=== PATIENT | male | born 1960 | race Caucasian/White ===

== ENCOUNTER 2017-06-20 01:43 | Observation (INO) | payer BC, SELFPAY | END 2017-06-20 11:30 | disposition home or self-care (01) | PROVIDERS: Admitting Provider Emergency Medicine; Emergency Provider Emergency Medicine; Visit Provider Family Medicine | DX: R07.9 Chest pain, unspecified (principal); Z95.5 Presence of coronary angioplasty implant and graft; I10 Essential (primary) hypertension | CPT/HCPCS: 36415; 71010; 80053; 82550; 82553; 84484; 85025; 93005; 99285; G0378 ==

== ENCOUNTER → 2017-09-22 15:26 | Outpatient (CLI) | payer BC, SELFPAY ==
[2017-09-22 16:43] VITALS: BMI 39.4
== END ==
PROVIDERS: Family Provider Family Medicine; PCP Family Medicine; Visit Provider Nurse Practitioner Family
DX: E66.9 Obesity, unspecified (principal); R60.0 Localized edema; G47.33 Obstructive sleep apnea (adult) (pediatric); Z71.3 Dietary counseling and surveillance
CPT/HCPCS: 97802; G0108

== ENCOUNTER → 2017-09-29 20:48 | Outpatient (CLI) | payer BC, SELFPAY | PROVIDERS: PCP Family Medicine; Visit Provider Nurse Practitioner Family | DX: G47.33 Obstructive sleep apnea (adult) (pediatric) (principal); E66.9 Obesity, unspecified; R60.0 Localized edema | CPT/HCPCS: 95811 ==

== ENCOUNTER → 2018-01-28 08:58 | Outpatient (CLI) | payer BC, SELFPAY ==
[2018-01-28 10:01] LABS: Erythrocyte Sedimentation Rate 14 mm/hr (0-20)
[2018-01-30 12:14] LABS: Anti-Centromere B Antibodies <0.2 AI (0.0-0.9); Anti-Jo-1 <0.2 AI (0.0-0.9); Anti-Smith Antibody <0.2 AI (0.0-0.9); Antichromatin Antibodies <0.2 AI (0.0-0.9); Antiscleroderma-70 Antibodies <0.2 AI (0.0-0.9); RNP Antibodies 0.5 AI (0.0-0.9); Sjogren's Anti-SS-A <0.2 AI (0.0-0.9); Sjogren's Anti-SS-B <0.2 AI (0.0-0.9)
[2018-02-01 16:54] LABS: Anti-DNA (DS) Ab Qn <1 IU/mL (0-9)
== END ==
PROVIDERS: Visit Provider Nurse Practitioner Family
DX: R60.0 Localized edema (principal); L53.9 Erythematous condition, unspecified; M79.606 Pain in leg, unspecified; G47.33 Obstructive sleep apnea (adult) (pediatric)
CPT/HCPCS: 36415; 85651; 86225; 86235

== ENCOUNTER 2018-08-01 17:30 | Outpatient (RCR) | payer BC, SELFPAY ==
--- NOTE | 2018-07-05 18:17 | HMH.PTOPEV ---
PT Outpatient Evaluation Rehab PT Outpatient Evaluation Start: 07/05/18 17:51 Freq: Status: Active Protocol: Document 07/05/18 17:54 [id number] (Rec: 07/05/18 18:17 AMY [id number]) Electronically Signed By Gage Zamora PT 07/05/18 17:54 Outpatient Therapy Subjective History Subjective History This is the initial Physical Therapy evaluation for Jerel Pereira. Pt is a 58 y/o male referred to PT for c/o RLE plantar fascitis and alley's pain. Pt reprots he has dealt with PF for ~ 3 years intermittantly. Pt reprots that his L foot was worse but after several injections the pain eased off. PT now reports his R heel is bothering him. Pt reports he has had a few injections in this foot as well. Chief Complaint Pain Stiff Symptom Type Ache Throb Sharp Burning Symptoms Relieved By Rest/Positioning Ice Symptoms Aggravated By Standing Prior Functional Limitations None Current Functional Limitations Driving Standing Recreation Activity Symptom Description Constant but Variable Level of pain today (0-10) 2 Pain scale - at its best (0-10) 1 Pain scale - at its worst (0-10) 5 Ankle/Foot Eval Gait Observation General Gait Pattern Observation No Deviations/Normal Assistive Device Ambulation Assistive Device None Palpation Tenderness right Ankle/Foot Palpation Findings Tenderness Ankle/Foot Palpation Overall Comment TTP PF and Achilles insertion ROM Ankle/Foot Dorsiflexion w/Knee Extended 5 Active Range Motion (degrees) Ankle/Foot Plantar Flexion Active Range 60 of Motion (degrees) Ankle/Foot Eversion Active Range of 20 Motion (degrees) Ankle/Foot Inversion Active Range of 30 Motion (degrees) Ankle/Foot ROM Limitations Soft Tissue Tightness Special Tests Ankle Eversion Test Negative Right Talar Tilt Test Negative Right Ankle Inversion (supination) Test Negative Right Foot Compression Test Negative Right Foot Feiss Line Negative Right Foot Interdigital Neuroma Test Negative Right Outpatient Therapy Assessment Impairments Problems/Impairmments
== END 2018-08-01 17:35 | disposition home or self-care (01) ==
LOC: PT 17:30
PROVIDERS: Visit Provider Podiatrist
DX: M76.61 Achilles tendinitis, right leg (principal); M72.2 Plantar fascial fibromatosis; M67.01 Short Achilles tendon (acquired), right ankle
CPT/HCPCS: 97010; 97035; 97110; 97163

== ENCOUNTER → 2018-09-28 13:25 | Outpatient (CLI) | payer BC, SELFPAY ==
--- NOTE | 2018-09-28 13:30 | XR_ITS ---
XR shoulder RT min 2V HISTORY: ITS.REASON: right shoulder pain ORDERING PHYSICIAN: Miguel Christianson MD PATIENT AGE: 58 years Comparison: None FINDINGS: No fracture or dislocation. No lytic or blastic change. There is normal mineralization. The joint spaces are well-preserved. No significant degenerative/arthritic changes. No erosive changes evident. IMPRESSION: Negative, no acute finding
--- NOTE | 2018-09-28 13:30 | XR_ITS ---
XR hand RT min 3V HISTORY: ITS.REASON: right hand pain/ numbness ORDERING PHYSICIAN: Miguel Christianson MD PATIENT AGE: 58 years COMPARISON: None FINDINGS: No fracture or dislocation. No lytic or blastic change. There is normal mineralization.. The joint spaces are well-preserved. No significant degenerative/arthritic changes. No erosive changes evident.. IMPRESSION: Negative, no acute finding
== END ==
PROVIDERS: PCP Family Medicine; Visit Provider Orthopaedic Surgery
DX: M79.641 Pain in right hand (principal); M25.511 Pain in right shoulder
CPT/HCPCS: 73030; 73130

== ENCOUNTER → 2018-12-04 15:42 | Outpatient (CLI) | payer BC, SELFPAY ==
[2018-12-04 16:18] LABS: Basophils # 0.1 K/mm3 (0-0.2); Basophils % 0.7 % (0.1-2.0); Eosinophils # 0.3 K/mm3 (0.0-0.4); Eosinophils % 4.1 % (0.1-12.0); Hematocrit 43.9 % (42.0-52.0); Hemoglobin 15.2 g/dL (14.1-18.0); Lymphocytes # 2.6 K/mm3 (0.7-4.5); Lymphocytes % 33.5 % (10-50); Mean Corpuscular HGB Conc 34.6 g/dL (31.8-35.4); Mean Corpuscular Hemoglobin 30.8 pg (27.0-31.2); Mean Platelet Volume 6.5 fl (7.4-10.4); Monocytes # 0.5 K/mm3 (0.1-1.0); Neutrophils # 4.3 K/mm3 (1.8-7.8); Neutrophils % 55.7 % (37.0-80.0); Platelet Count 401 K/mm3 (142-424); Red Blood Count 4.94 M/mm3 (4.60-6.20); Red Cell Distribution Width 12.9 % (11.5-17.5); White Blood Count 7.6 K/mm3 (4.8-10.8)
[2018-12-04 17:48] LABS: Anion Gap 15.3 mEq/L (5-15); Blood Urea Nitrogen 14 mg/dL (7-18); Calcium 9.4 mg/dL (8.5-10.1); Carbon Dioxide 28 mmol/L (21.0-32.0); Chloride 104 mmol/L (98-107); Creatinine,Serum 0.95 mg/dL (0.70-1.30); Estimated Glomerular Filt Rate 81 ml/min (>60); GFR (African American) 98 ML/MIN (>60); Glucose 94 mg/dL (74-106); Potassium 4.3 mmoL/L (3.5-5.1); Sodium 143 mmol/L (136-145)
== END ==
PROVIDERS: Visit Provider Orthopaedic Surgery
DX: M65.341 Trigger finger, right ring finger (principal); G56.01 Carpal tunnel syndrome, right upper limb
CPT/HCPCS: 36415; 80048; 85025; 93005

== ENCOUNTER 2018-12-12 09:46 | Day surgery (SDC) | payer BC, SELFPAY ==
[2018-12-11 12:55] VITALS: BP 121/72; PULSE 54; RESP 16; TEMP 36.3; O2SAT 100
[2018-12-11 14:53] VITALS: BMI 37.6
[2018-12-12 10:31] VITALS: BP 135/70; PULSE 61; RESP 18; TEMP 36.7; O2SAT 97
[2018-12-12 12:40] VITALS: BP 120/76; PULSE 60; RESP 16; TEMP 36.2; O2SAT 97
[2018-12-12 13:10] VITALS: BP 137/87; PULSE 57; RESP 16; TEMP 36.4; O2SAT 98
--- NOTE | 2018-12-12 13:25 | HMH.OPNOTE ---
Date of procedure: 12/12/18 Pre-op Diagnosis:: Trigger finger, right fourth digit Post-op Diagnosis:: Same Procedure performed:: Trigger finger (A1 paddy) release, right fourth digit Surgeon:: Miguel Christianson MD ROTARY DRILLER PROSPECTING:: Michael Wu Anesthesia: regional ([place]'s block) Estimated blood loss (mL): 0 Clinical Note:: Patient is a 58-year-old gentleman with recurrent triggering of his right ring finger. He had symptoms for a long time which failed to respond satisfactorily to conservative management including local steroid injection. As the patient failed to respond adequately to conservative management and reports significant pain, disability and dysfunction with his right hand surgical release of the A1 pulleys was necessary to relieve symptoms, improve function and decrease the pain and to prevent permanent stiffness and damage. 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 He has remote history of myocardial infarction and is on long-term aspirin and Plavix. Please refer to my office note for full details. Operative findings:: The intraoperative findings showed very thickened and inflamed A1 paddy of the ring finger. Also there was synovitis of the flexor tendon sheath. The flexor tendons are thickened and somewhat degenerate but there is no complete tear. There was no evidence of any space-occupying lesions over the tendons or within the A1 paddy. Operative note:: On the day of the surgery the patient was met in the preoperative area. Patient was positively identified and the operative site was marked and initialed by me. A physical examination was performed and the chart was updated. I again discussed the procedure, risks and benefits and alternatives with the patient. The complications discussed include but are not limited to- infection, injury to nerves, tendons and blood vessels, incisional scar (cosmesis), scar tenderness/contracture, DVT/PE, finger stiffness, bowstringing of the tendons, CRPS (complex regional pain syndrome- pain, sensory and temperature changes, swelling and stiffness), painful scar, incomplete relief of pain, incomplete return of function, recurrence and likely need for further surgery in future and also the risks of anesthesia including heart attack, stroke, and even . I have discussed how there is a small but real possibility of loss of use of the arm, loss of the limb or loss of life itself. I have also explained how additional surgery may be required if there are any complications or recurrence. We have also discussed the postoperative recovery and rehabilitation required, the likely need for hand therapy, the possibility of stiffness, chronic pain and we've also discussed the option of nonsurgical treatment. We have also discussed the anesthetic options which include local, regional and general. Patient expressed a preference for a regional [place]'s block. Patient asked appropriate questions and all have been answered by me. Patient wished to proceed with the surgery. Consent form was reviewed and signed. Patient understood the risks, agreed to proceed with surgery, [signed the consent form] and no guarantees or assurances were given or implied. The patient was brought to the operating room and placed supine on the operating table. The right upper extremity was placed over a side table. All the bony prominences were well-padded. A well-padded double cuff tourniquet was placed over the right upper arm and the limb was exsanguinated with the Esmarch bandage and tourniquet cuff was inflated to 250 mmHg. A Isabela?s block was administered by the milk and cream grader. Please see nursing records for the total tourniquet time. The right upper extremity was prepped and draped in the usual sterile fashion. A preprocedure timeout was performed as per hospital policy. A transverse skin incision was marked just distal to the distal palmar crease. Next, a transverse incision approximately 1.5 cm in length was made just distal to th
--- NOTE | 2018-12-12 14:16 | P.OP_ITS ---
Date of procedure: 12/12/18 Pre-op Diagnosis:: Trigger finger, right fourth digit Post-op Diagnosis:: Same Procedure performed:: Trigger finger (A1 paddy) release, right fourth digit Surgeon:: Miguel Christianson MD POKER MANAGER:: Michael Wu Anesthesia: regional ([place]'s block) Estimated blood loss (mL): 0 Clinical Note:: Patient is a 58-year-old gentleman with recurrent triggering of his right ring finger. He had symptoms for a long time which failed to respond satisfactorily to conservative management including local steroid injection. As the patient failed to respond adequately to conservative management and reports significant pain, disability and dysfunction with his right hand surgical release of the A1 pulleys was necessary to relieve symptoms, improve function and decrease the pain and to prevent permanent stiffness and damage. 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 He has remote history of myocardial infarction and is on long-term aspirin and Plavix. Please refer to my office note for full details. Operative findings:: The intraoperative findings showed very thickened and inflamed A1 paddy of the ring finger. Also there was synovitis of the flexor tendon sheath. The flexor tendons are thickened and somewhat degenerate but there is no complete tear. There was no evidence of any space-occupying lesions over the tendons or within the A1 paddy. Operative note:: On the day of the surgery the patient was met in the preoperative area. Patient was positively identified and the operative site was marked and initialed by me. A physical examination was performed and the chart was updated. I again discussed the procedure, risks and benefits and alternatives with the patient. The complications discussed include but are not limited to- infection, injury to nerves, tendons and blood vessels, incisional scar (cosmesis), scar tenderness/contracture, DVT/PE, finger stiffness, bowstringing of the tendons, CRPS (complex regional pain syndrome- pain, sensory and temperature changes, swelling and stiffness), painful scar, incomplete relief of pain, incomplete return of function, recurrence and likely need for further surgery in future and also the risks of anesthesia including heart attack, stroke, and even . I have discussed how there is a small but real possibility of loss of use of the arm, loss of the limb or loss of life itself. I have also explained how additional surgery may be required if there are any complications or recurrence. We have also discussed the postoperative recovery and rehabilitation required, the likely need for hand therapy, the possibility of stiffness, chronic pain and we've also discussed the option of nonsurgical treatment. We have also discussed the anesthetic options which include local, regional and general. Patient expressed a preference for a regional [place]'s block. Patient asked appropriate questions and all have been answered by me. Patient wished to proceed with the surgery. Consent form was reviewed and signed. Patient understood the risks, agreed to proceed with surgery, [signed the consent form] and no guarantees or assurances were given or implied. The patient was brought to the operating room and placed supine on the operating table. The right upper extremity was placed over a side table. All the bony prominences were well-padded. A well-padded double cuff tourniquet was placed over the right upper arm and the limb was exsanguinated with the Esmarch bandage and tourniquet cuff was inflated to 250 mmHg. A Isabela?s block was administered by the storage center manager. Please see nursing records for the total tourniquet time. The right upper extremity was prepped and draped in the usual sterile fashion. A preprocedure
== END 2018-12-12 13:10 | disposition home or self-care (01) ==
PROVIDERS: PCP Family Medicine; Visit Provider Orthopaedic Surgery
PROC: (CPT 26055; principal; 2018-12-12 11:15)
DX: M65.341 Trigger finger, right ring finger (principal)
CPT/HCPCS: 26055; 96374

== ENCOUNTER → 2019-03-22 15:50 | Outpatient (CLI) | payer BC, SELFPAY ==
--- NOTE | 2019-03-22 15:55 | MR_ITS ---
PROCEDURE: MR KNEE LT WO CON CLINICAL INDICATION: evaluate for meniscal tear Twisting injury with pain medially. COMPARISON: XR KNEE LT 3V from 03/07/2019 TECHNIQUE: Routine multiplanar multi echo sequences are performed without gadolinium enhancement. FINDINGS: The cruciate ligaments, collateral ligaments, patellar tendon, and quadriceps tendon all appear intact. There is some mild thinning of the patellar cartilage. No meniscal tear is evident. There is a mild amount of bone marrow edema within the medial femoral condyle. There is a small amount of fluid within the knee joint. There is mild generalized edema of the subcutaneous tissues about the knee. Varicosities are present medially and laterally. IMPRESSION: 1. No evidence of internal derangement 2. Suspect a small area of bone bruise along the medial femoral condyle 3. Minimal osteoarthritic change of the patellofemoral joint with minimal thinning of the patellar cartilage Dictated by: Bjorn Turk MD 03/24/2019 11:40 Electronically signed by Bjorn Turk MD in [place] 03/24/2019 11:40
== END ==
PROVIDERS: PCP Family Medicine; Visit Provider Orthopaedic Surgery
DX: S83.412A Sprain of medial collateral ligament of left knee, initial encounter (principal); S89.92XA Unspecified injury of left lower leg, initial encounter
CPT/HCPCS: 73721

== ENCOUNTER 2019-06-28 16:39 | Outpatient (RCR) | payer BC, SELFPAY | END 2019-06-28 16:45 | disposition home or self-care (01) | LOC: PT 16:39 | PROVIDERS: PCP Family Medicine; Visit Provider Family Medicine | DX: S46.911A Strain of unspecified muscle, fascia and tendon at shoulder and upper arm level, right arm, initial encounter (principal) | CPT/HCPCS: 97163 ==

== ENCOUNTER 2019-08-31 17:30 | Outpatient (RCR) | payer BC, SELFPAY | END 2019-08-31 17:35 | disposition home or self-care (01) | LOC: PT 17:30 | PROVIDERS: PCP Family Medicine; Visit Provider Family Medicine | DX: S46.911A Strain of unspecified muscle, fascia and tendon at shoulder and upper arm level, right arm, initial encounter (principal) | CPT/HCPCS: 97010; 97014; 97110; 97163; G0283 ==

== ENCOUNTER 2019-11-04 13:21 | Emergency (ER) | payer BC, SELFPAY ==
[2019-11-04 13:27] VITALS: BP 110/68; PULSE 65; RESP 18; O2SAT 97; BMI 36.9
--- NOTE | 2019-11-04 13:45 | ECG_ITS ---
APPROVED REPORT Exam: Resting ECG HR:71 bpm ECG Measurements Heart Rate 71 AXES LA 142 P 43 QRSd 92 QRS -17 QT 410 T 32 QTc 445 <Conclusion> Normal sinus rhythm Normal ECG Electronically signed by : Ruddy Quinonez, 11/05/2019 20:59:14
--- NOTE | 2019-11-04 13:59 | CT_ITS ---
PROCEDURE: CT ANGIO CHEST CLINCIAL INDICATION: CP Chest pain, pain and pressure and center of the chest heart disease COMPARISON: No exams were available for comparison TECHNIQUE: IV Contrast: 70ML OPTIRAY 350 Axial images obtained with sagittal and coronal reformats. All CT scans at the facility use one or more dose reduction, viz: automated exposure control, ma/kV adjustment per patient size (including targeted exams where dose is matched to indication, i.e. head), or iterative reconstruction technique. FINDINGS: HEART AND MEDIASTINAL STRUCTURES: No evidence of pulmonary embolus, aortic aneurysm, or dissection. LUNGS AND PLEURAL SPACES: There are mild atelectatic or fibrotic changes in the lingula. The remaining lungs are clear. BONY STRUCTURES: No acute bony abnormalities apparent. UPPER ABDOMEN: There is mild splenomegaly at 14 cm. ADDITIONAL FINDINGS: Gynecomastia IMPRESSION: No acute finding. No evidence of pulmonary embolus Dictated by: Bjorn Turk MD 11/05/2019 10:15 Electronically signed by Bjorn Turk MD in [place] 11/05/2019 10:15
--- NOTE | 2019-11-04 14:11 | HMH.EDGENADL ---
ED Disposition Clinical Impression: Chest wall pain Disposition: Home, Self-Care Condition on Discharge: Good Instructions: DI for Acute Pain -- Adult Referrals: Ruddy Castillo MD [Primary Care Provider] - - Critical Care Critical Care Time: No Attestation: On 11/04/19, the high probability of a clinically significant, sudden or life threatening deterioration of the following system(s) required my full and direct attention, intervention and personal management. The time I documented below is in addition to time spent performing reported procedures but includes the following listed in this critical care notation. Medical Decision Making - Goran Inquiry Pt receiving controlled substance: No Vital Signs: 11/04/19 13:27 Pulse Rate [Radial] 65 Respiratory Rate 18 Blood Pressure [Right Arm] 110/68 Blood Pressure Mean [Right Arm] 82 Blood Pressure Source [Right Arm] Automatic Cuff Blood Pressure Position [Right Arm] Sitting 02 Sat by Pulse Oximetry 97 Oxygen Delivery Method Room Air - Lab Data Lab Results 11/04/19 13:43: WBC 6.3, RBC 4.98, Hgb 15.2, Hct 44.8, MCV 89.9, MCH 30.5, MCHC 33.9, RDW 13.3, Plt Count 383, MPV 7.5, Neut % (Auto) 48.9, Lymph % (Auto) 36.5, Morrison % (Auto) 7.4, Eos % (Auto) 6.1, Baso % (Auto) 1.2, Neut # (Auto) 3.1, Lymph # (Auto) 2.3, Morrison # (Auto) 0.5, Eos # (Auto) 0.4, Baso # (Auto) 0.1 11/04/19 13:43: Sodium 138, Potassium 3.8, Chloride 105, Carbon Dioxide 27, Anion Gap 9.8, BUN 13, Creatinine 0.70, Estimated Creat Clear 191, Estimated GFR 115, Est GFR ( Amer) 139, Glucose 91, Calcium 9.5, Troponin I < 0.01 Result diagrams: 11/04/19 13:43 11/04/19 13:43 Orders (Tests/Meds): ED MEDICATIONS Discontinued Medications Generic Name Dose Route Start Last Admin Trade Name Freq PRN Reason Stop Dose Admin Ioversol 70 ml 11/04/19 15:05 11/04/19 15:06 Rad-Optiray 350 100ml Vial IV 11/04/19 15:06 70 ml ONCE ONE Administration Protocol Sodium Chloride 50 ml 11/04/19 15:05 11/04/19 15:07 Rad-Ns 50ml Vial IV 11/04/19 15:06 50 ml ONCE ONE Administration Sodium Chloride 10 ml 11/04/19 15:05 11/04/19 15:07 Rad-Saline Flush 10ml Syringe IV 11/04/19 15:06 10 ml ONCE ONE Administration ORDERS Category Date Time Status CTA Chest [CT angio chest] Stat Cat Scan 11/04/19 13:59 Taken Troponin I Q3H Lab 11/04/19 17:00 Ordered Troponin I Q3H Lab 11/04/19 20:00 Ordered Medical Decision Narrative: Second set of cardiac enzymes are within normal limits patient will follow up with his career development facilitator on Tuesday. General Adult HPI - General Chief complaint: PAIN Stated complaint: pain in middle of chest all the thru to his back Time Seen by Provider: 11/04/19 16:00 Mode of Arrival: Ambulatory Limitations: No Limitations Description of Symptoms (Recalled from ER Triage Doc. by RN): pain in the center of his chest that radiates to his back. Better with rest - History of Present Illness HPI narrative: 59-year-old male presents to the ED with chest pain. He stated his chest pain started about 2 weeks ago and has been coming on and off. He describes the pain substernal and radiating towards his back. Patient denies any shortness of breath or diaphoresis. He states exacerbating factors of this chest pain include increasing intrathoracic pressure such as coughing sneezing laughing or taking a deep breath. Patient also states doing pushing movements also causes chest pain as well. Patient says alleviating factors include rest. Presently as patient is laying down in a supine position he complains of 0 chest pain. He does state when his pain is at its crescendo he describes the pain as a sharp pressure-like sensation and rates it at 7 out of 10. Patient states that he does have hyperlipidemia, diabetes mellitus type 2 and hypertension but he has been well controlled. Patient has had a cardiac catheterization in the past with one stent. Patient
[2019-11-04 14:21] LABS: Basophils # 0.1 K/mm3 (0-0.2); Basophils % 1.2 % (0.1-2.0); Eosinophils # 0.4 K/mm3 (0.0-0.4); Eosinophils % 6.1 % (0.1-12.0); Hematocrit 44.8 % (42.0-52.0); Hemoglobin 15.2 g/dL (14.1-18.0); Lymphocytes # 2.3 K/mm3 (0.7-4.5); Lymphocytes % 36.5 % (10-50); Mean Corpuscular HGB Conc 33.9 g/dL (31.8-35.4); Mean Corpuscular Hemoglobin 30.5 pg (27.0-31.2); Mean Corpuscular Volume 89.9 fl (80-94); Mean Platelet Volume 7.5 fl (7.4-10.4); Monocytes # 0.5 K/mm3 (0.1-1.0); Monocytes % 7.4 % (1.7-9.3); Neutrophils # 3.1 K/mm3 (1.8-7.8); Neutrophils % 48.9 % (37.0-80.0); Platelet Count 383 K/mm3 (142-424); Red Blood Count 4.98 M/mm3 (4.60-6.20); Red Cell Distribution Width 13.3 % (11.5-17.5); White Blood Count 6.3 K/mm3 (4.8-10.8)
[2019-11-04 14:29] LABS: Chloride 105 mmol/L (98-107); Potassium 3.8 mmoL/L (3.5-5.1); Sodium 138 mmol/L (136-145)
[2019-11-04 14:32] LABS: Anion Gap 9.8 mEq/L (5-15); Blood Urea Nitrogen 13 mg/dl (9-20); Calcium 9.5 mg/dl (8.4-10.2); Carbon Dioxide 27 mmol/L (22.0-30.0); Creatinine Clearance Estimated 191 mL/min (50-200); Estimated Glomerular Filt Rate 115 ml/min (>60); GFR (African American) 139 ML/MIN (>60); Glucose 91 mg/dl (74-100)
[2019-11-04 14:54] LABS: Troponin I < 0.01 ng/ml (0.00-0.034)
[2019-11-04 17:27] LABS: Troponin I < 0.01 ng/ml (0.00-0.034)
[2019-11-04 17:50] VITALS: BP 120/85; PULSE 85; RESP 20; TEMP 36.8; O2SAT 98
== END 2019-11-04 17:51 | disposition home or self-care (01) ==
PROVIDERS: Emergency Provider Family Medicine; PCP Family Medicine
DX: R07.89 Other chest pain (principal); E78.5 Hyperlipidemia, unspecified; E11.9 Type 2 diabetes mellitus without complications; I10 Essential (primary) hypertension; Z95.5 Presence of coronary angioplasty implant and graft; Z94.9 Transplanted organ and tissue status, unspecified; I25.2 Old myocardial infarction
CPT/HCPCS: 71275; 80048; 84484; 85025; 93005; 99283; Q9967

== ENCOUNTER → 2019-12-05 14:17 | Outpatient (CLI) | payer BC, SELFPAY ==
--- NOTE | 2019-12-05 14:24 | XR_ITS ---
PROCEDURE: XR HAND RT MIN 3V CLINICAL INDICATION: right 5th digit trigger finger COMPARISON: [id number] XR hand RT min 3V from 09/28/2018 FINDINGS: No fracture or dislocation. No lytic or blastic change. There is normal mineralization. The joint spaces are well-preserved. No significant degenerative/arthritic changes. No erosive changes evident. Other findings:None. IMPRESSION: No acute findings. Dictated by: Bjorn Turk MD 12/05/2019 15:13 Electronically signed by Bjorn Turk MD in [place] 12/05/2019 15:13
== END ==
PROVIDERS: PCP Family Medicine; Visit Provider Orthopaedic Surgery
DX: M65.30 Trigger finger, unspecified finger (principal)
CPT/HCPCS: 73130

== ENCOUNTER → 2019-12-19 08:08 | Outpatient (CLI) | payer BC, SELFPAY ==
[2019-12-19 09:14] LABS: Basophils # 0.1 K/mm3 (0-0.2); Eosinophils # 0.4 K/mm3 (0.0-0.4); Eosinophils % 6.4 % (0.1-12.0); Hematocrit 43.8 % (42.0-52.0); Hemoglobin 14.7 g/dL (14.1-18.0); Lymphocytes # 1.9 K/mm3 (0.7-4.5); Lymphocytes % 32.5 % (10-50); Mean Corpuscular HGB Conc 33.7 g/dL (31.8-35.4); Mean Corpuscular Hemoglobin 31.4 pg (27.0-31.2); Mean Corpuscular Volume 93.1 fl (80-94); Mean Platelet Volume 7.2 fl (7.4-10.4); Monocytes # 0.4 K/mm3 (0.1-1.0); Monocytes % 6.6 % (1.7-9.3); Neutrophils # 3.1 K/mm3 (1.8-7.8); Neutrophils % 53.5 % (37.0-80.0); Platelet Count 359 K/mm3 (142-424); Red Cell Distribution Width 13.4 % (11.5-17.5); White Blood Count 5.9 K/mm3 (4.8-10.8)
[2019-12-19 10:15] LABS: Chloride 104 mmol/L (98-107)
[2019-12-19 10:16] LABS: Potassium 4.5 mmoL/L (3.5-5.1); Sodium 138 mmol/L (136-145)
[2019-12-19 10:18] LABS: Alanine Aminotransferase 25 U/L (12-78); Alkaline Phosphatase 101 U/L (38-126); Anion Gap 8.5 mEq/L (5-15); Aspartate Amino Transferase 25 U/L (17-59); Bilirubin,Total 0.6 mg/dl (0.2-1.3); Blood Urea Nitrogen 16 mg/dl (9-20); Carbon Dioxide 30 mmol/L (22.0-30.0); Cholesterol 110 mg/dl (140-200); Estimated Glomerular Filt Rate 99 ml/min (>60); GFR (African American) 119 ML/MIN (>60); Triglycerides 77 mg/dl (30-150); VLDL Cholesterol 15 mg/dL (0-40)
[2019-12-19 10:19] LABS: Albumin Level 3.6 g/dl (3.5-5.0); Albumin/Globulin Ratio 1.4 (1.1-1.8); Calcium 9.3 mg/dl (8.4-10.2); Chol/HDL Ratio 2.4 (1-3.5); Globulin 2.5 g/dL (1.3-3.2); Glucose 99 mg/dl (74-100); HDL Cholesterol 46 mg/dl (40-60); Total Protein,Serum 6.1 g/dl (6.3-8.2)
[2019-12-19 10:30] LABS: Direct LDL Cholesterol 58.41 mg/dL (100-129)
[2019-12-19 11:24] LABS: Coronavirus 19 IgG Antibody Negative (Negative); Coronavirus 19 IgM Antibody Negative (Negative)
== END ==
PROVIDERS: Physician Assistant Medical; Visit Provider Orthopaedic Surgery
DX: Z01.818 Encounter for other preprocedural examination (principal); M65.351 Trigger finger, right little finger; I25.10 Atherosclerotic heart disease of native coronary artery without angina pectoris; T46.4X1A Poisoning by angiotensin-converting-enzyme inhibitors, accidental (unintentional), initial encounter; T46.6X1A Poisoning by antihyperlipidemic and antiarteriosclerotic drugs, accidental (unintentional), initial encounter
CPT/HCPCS: 36415; 80053; 80061; 85025; 86328

== ENCOUNTER 2019-12-20 07:13 | Day surgery (SDC) | payer BC, SELFPAY ==
--- NOTE | 2019-12-18 09:22 | SUR.PREOP ---
12/18/2019 @ 7123--PHONE CALL MADE TO PATIENT. PATIENT UNDERSTANDS THAT LAB WORK AND COVID TESTING NEEDS TO BE COMPLETED @ 0800 ON 12/19/2019. PATIENT UNDERSTANDS IF LAB WORK AND COVID-19 TESTS ARE NOT COMPLETED BY 12PM ON THAT DATE, THE SURGERY SCHEDULED WILL BE CANCELLED AND RESCHEDULED FOR ANOTHER TIME.
[2019-12-18 11:17] VITALS: BMI 36.9
[2019-12-20] VITALS (11 sets, daily range): BP systolic 107–116; BP diastolic 62–72; PULSE 56–65; RESP 18; TEMP 36.3–36.5; O2SAT 93–100
--- NOTE | 2019-12-20 10:33 | HMH.ANESCL ---
[facility] Anesthesia Checklist - Patient Identification Patient Identification: Arm Band, Verbal (Name & ) - Structural Data Admitted From: Home Planned Operative Procedure/s: r tfr Consent for Planned Operative Procedure(s) Verified: Yes Verified Documents: History and Physical - NPO Status Verified Time NPO: 00:00 - Chart Verification Results Verified: CBC, BMP - Additional verifications Patient : No Anesthesia Reactions: No Hx Blood Transfusions: No Blood Transfusion Reaction: No Cephalosporin Allergy: No Previous Colonoscopy: No - Cardiovascular Assessment Heart Sounds: S1 & S2 Pulse Strength: Baseline Pulse Rhythm: Regular Peripheral Edema: No - Airway Assessment C-Spine Mobility Assessed: Yes TMJ Mobility Assessed: Yes Dentition: Good Dentition - Neurological Assessment Level of Consciousness: Awake, Alert, Appropriate Hx Seizures: No Numbness or tingling in extremities: No - Anesthesia Plan Anesthesia Risk discussed: Yes Anesthesia Plan: Verified ASA Class: III Anesthesia Type: General [facility] History I have reviewed the patient's past medical history: Yes Medical History: Reports:: Arrhythmia, Hyperlipidemia, Myocardial Infarction Denies:: Cancer, Diabetes Mellitus Type 1, Diabetes Mellitus Type 2, Internal Pacemaker, MRSA, Seizures *Have you ever received a pneumonia vaccine?: No *Have you received a flu vaccine this season?: Yes Other Medical History: Denies: Blood Transfusion Reaction Anesthesia experience/problems:: none Laterality Cases: Right: Other Other Surgeries: Yes: Cholecystectomy, Colonoscopy, Coronary Stent, Other. No: Pacemaker Amputation: No Fractures: Yes (hand) - *Social History Educational Level: Completed College Smoking Status: Never smoker Alcohol Intake: current Alcohol Intake Frequency:: holidays/special occasions only Substance Use Type: denies use *Occupational Status:: employed Housing: house Household Members: family *Travel in the last 8 weeks: None Family Hx:: Cancer, Hyperlipidemia, Hypertension
--- NOTE | 2019-12-20 10:34 | P.PN_ITS ---
[facility] Anesthesia Record Part I Intake, IV Amount: 400 Estimated blood loss (mL): 5 Urine output (mL): 0 Blood Products used (#): none Blood Pressure: 111/71 SaO2: 93 Pulse Rate: 60 Respiratory Rate: 18 Temperature: 97.3 F Patient is:: Drowsy, Nasal O2, Stable Stable to PACU at:: 10:30
--- NOTE | 2019-12-20 12:04 | HMH.ANESII ---
[facility] Anesthesia Record Part II Discharge Time: 11:00 Destination: Surgical Day Care (OP Surgery) PACU nurse assessment reviewed?: Yes Patient Condition:: Good Anesthesia Complications:: None Swallowing reflex intact?: Yes Cyanosis?: No Blood Pressure: 108/71 Pulse Rate: 60 Temperature: 97.7 F Mental Status: Alert & Oriented Pain level:: 2 Nausea and/or vomitting:: None Intake, IV Amount: 25
--- NOTE | 2019-12-20 15:17 | HMH.OPNOTE ---
Date of procedure: 12/20/19 Pre-op Diagnosis:: Trigger finger, right fifth digit Post-op Diagnosis:: Same Procedure performed:: Trigger finger (A1 paddy) release, right fifth digit Surgeon:: Miguel Christianson MD WATERPROOFING SUPERVISOR:: Ruddy Mariscal Anesthesia: LMA Estimated blood loss (mL): 2 Clinical Note:: Patient is a 59-year-old gentleman with recurrent triggering of his right fifth finger. He had symptoms for a long time which failed to respond satisfactorily to conservative management including local steroid injection. As the patient failed to respond adequately to conservative management and reports significant pain, disability and dysfunction with his right hand, surgical release of the A1 pulleys is necessary to relieve symptoms, improve function and decrease the pain and to prevent permanent stiffness and damage. 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 He has remote history of myocardial infarction and is on long-term aspirin and Plavix. Please refer to my office note for full details. Operative findings:: The intraoperative findings showed very thickened and inflamed A1 paddy of the little finger. Also there was synovitis of the flexor tendon sheath. The flexor tendons are thickened and somewhat degenerate but there is no full-thickness are complete tear. There is no evidence of any space-occupying lesions over the tendons or within the A1 paddy. Operative note:: On the day of the surgery the patient was met in the preoperative area. Patient was positively identified and the operative site was marked and initialed by me. A physical examination was performed and the chart was updated. I have again discussed the procedure, risks and benefits and alternatives with the patient. The complications discussed include but are not limited to- infection, injury to nerves, tendons and blood vessels, incisional scar (cosmesis), scar tenderness/contracture, DVT/PE, finger stiffness, bowstringing of the tendons, CRPS (complex regional pain syndrome- pain, sensory and temperature changes, swelling and stiffness), painful scar, incomplete relief of pain, incomplete return of function, recurrence and likely need for further surgery in future and also the risks of anesthesia including heart attack, stroke, and even . I have discussed how there is a small but real possibility of loss of use of the arm, loss of the limb or loss of life itself. I have also explained how additional surgery may be required if there are any complications or recurrence. We have also discussed the postoperative recovery and rehabilitation required, the likely need for hand therapy, the possibility of stiffness, chronic pain and we've also discussed the option of nonsurgical treatment. Patient asked appropriate questions and all have been answered by me. Patient wished to proceed with the surgery. Patient understood the risks, agreed to proceed with surgery and no guarantees or assurances were given or implied. The patient was brought to the operating room and placed supine on the operating table. The right upper extremity was placed over a side table. All the bony prominences were well-padded. A general anesthesia was administered by the sewing inspector. A well-padded tourniquet cuff was placed over the right upper arm. The right upper extremity was prepped and draped in the usual sterile fashion. A preprocedure timeout was performed as per hospital policy. A transverse skin incision was marked just distal to the distal palmar crease. The limb was exsanguinated with the Esmarch bandage and tourniquet cuff was inflated to 250 mmHg. Please see nursing records for the total tourniquet time. Next, a transverse incision approximately 1.5 cm in length was made just distal to the distal palmar crease for the little finger. Dissection was carried down through the subcutaneous fat down to the level of the flexor tendon sheath with care taken to identify and protect the neurova
== END 2019-12-20 11:50 | disposition home or self-care (01) ==
PROVIDERS: PCP Family Medicine; Visit Provider Orthopaedic Surgery
PROC: (CPT 26055; principal; 2019-12-20 08:45)
DX: M65.351 Trigger finger, right little finger (principal); I25.10 Atherosclerotic heart disease of native coronary artery without angina pectoris; I25.2 Old myocardial infarction; Z79.02 Long term (current) use of antithrombotics/antiplatelets; Z79.82 Long term (current) use of aspirin; Z88.0 Allergy status to penicillin
CPT/HCPCS: 26055; 96374

== ENCOUNTER → 2020-01-21 11:07 | Outpatient (CLI) | payer BC, SELFPAY ==
--- NOTE | 2020-01-21 11:14 | XR_ITS ---
PROCEDURE: XR ANKLE LT MIN 3V CLINICAL INDICATION: LT ANKLE PAIN Posttraumatic pain COMPARISON: No exams were available for comparison FINDINGS: No fracture or dislocation. No lytic or blastic change. There is normal mineralization. The joint spaces are well-preserved. No significant degenerative/arthritic changes. No erosive changes evident. Other findings:There is soft tissue swelling medially IMPRESSION: Soft tissue swelling otherwise negative Dictated by: Bjorn Turk MD 01/21/2020 11:39 Electronically signed by Bjorn Turk MD in [place] 01/21/2020 11:39
== END ==
PROVIDERS: PCP Family Medicine; Visit Provider Nurse Practitioner
DX: M25.572 Pain in left ankle and joints of left foot (principal)
CPT/HCPCS: 73610

== ENCOUNTER → 2020-04-23 17:12 | Outpatient (CLI) | payer BC, SELFPAY ==
[2020-04-23 18:12] LABS: Basophils # 0.1 K/mm3 (0-0.2); Basophils % 0.6 % (0.1-2.0); Eosinophils # 0.4 K/mm3 (0.0-0.4); Eosinophils % 5.1 % (0.1-12.0); Hematocrit 45.8 % (42.0-52.0); Hemoglobin 14.6 g/dL (14.1-18.0); Lymphocytes # 2.6 K/mm3 (0.7-4.5); Lymphocytes % 31.1 % (10-50); Mean Corpuscular HGB Conc 31.8 g/dL (31.8-35.4); Mean Corpuscular Hemoglobin 29.7 pg (27.0-31.2); Mean Corpuscular Volume 93.3 fl (80-94); Mean Platelet Volume 8.1 fl (7.4-10.4); Monocytes # 0.5 K/mm3 (0.1-1.0); Monocytes % 5.4 % (1.7-9.3); Neutrophils # 4.8 K/mm3 (1.8-7.8); Neutrophils % 57.7 % (37.0-80.0); Platelet Count 378 K/mm3 (142-424); Red Blood Count 4.91 M/mm3 (4.60-6.20); White Blood Count 8.3 K/mm3 (4.8-10.8)
[2020-04-23 18:41] LABS: Alanine Aminotransferase 28 U/L (12-78); Albumin Level 4.1 g/dl (3.5-5.0); Albumin/Globulin Ratio 1.6 (1.1-1.8); Alkaline Phosphatase 121 U/L (38-126); Anion Gap 11.1 mEq/L (5-15); Aspartate Amino Transferase 29 U/L (17-59); Bilirubin,Total 0.5 mg/dl (0.2-1.3); Blood Urea Nitrogen 17 mg/dl (9-20); Calcium 9.4 mg/dl (8.4-10.2); Carbon Dioxide 29 mmol/L (22.0-30.0); Chloride 103 mmol/L (98-107); Estimated Glomerular Filt Rate 86 ml/min (>60); GFR (African American) 104 ML/MIN (>60); Globulin 2.6 g/dL (1.3-3.2); Glucose 123 mg/dl (74-100); Potassium 4.1 mmoL/L (3.5-5.1); Sodium 139 mmol/L (136-145); Total Protein,Serum 6.7 g/dl (6.3-8.2)
[2020-04-23 19:04] LABS: Coronavirus 19 IgG Antibody Negative (Negative); Coronavirus 19 IgM Antibody Negative (Negative)
== END ==
PROVIDERS: Visit Provider Orthopaedic Surgery
DX: Z01.818 Encounter for other preprocedural examination (principal); M65.331 Trigger finger, right middle finger
CPT/HCPCS: 36415; 80053; 85025; 86328

== ENCOUNTER 2020-04-24 07:33 | Day surgery (SDC) | payer BC, SELFPAY ==
[2020-04-22 10:35] VITALS: BMI 37.6
[2020-04-24 07:57] VITALS: BP 128/71; PULSE 68; RESP 18; TEMP 36.3; O2SAT 96
--- NOTE | 2020-04-24 08:19 | P.PN_ITS ---
[facility] Anesthesia Checklist - Patient Identification Patient Identification: Arm Band, Verbal (Name & ) - Structural Data Admitted From: Home Planned Operative Procedure/s: Right third digit trigger finger release Consent for Planned Operative Procedure(s) Verified: Yes Verified Documents: Surgical Consent, History and Physical - NPO Status Verified Time NPO: 20:00 - Chart Verification Results Verified: CBC, BMP, ECG - Additional verifications Anesthesia Reactions: No Hx Blood Transfusions: No Blood Transfusion Reaction: No - Airway Assessment C-Spine Mobility Assessed: Yes TMJ Mobility Assessed: Yes Dentition: Good Dentition - Neurological Assessment Level of Consciousness: Awake, Alert, Appropriate, Follows Commands Hx Seizures: No Numbness or tingling in extremities: No - Anesthesia Plan Anesthesia Risk discussed: Yes Anesthesia Plan: Verified ASA Class: III Anesthesia Type: MAC [facility] History I have reviewed the patient's past medical history: Yes Medical History: Reports:: Arrhythmia, Congestive Heart Failure, Coronary Artery Disease, Hyperlipidemia, Hypertension, Myocardial Infarction Denies:: Cancer, Diabetes Mellitus Type 1, Diabetes Mellitus Type 2, Internal Pacemaker, MRSA, Seizures *Have you ever received a pneumonia vaccine?: No *Have you received a flu vaccine this season?: Yes Other Medical History: Denies: Blood Transfusion Reaction Comment:: DARWIN, obesity Anesthesia experience/problems:: No prior complications Laterality Cases: Right: Other Other Surgeries: Yes: Cholecystectomy, Colonoscopy, Coronary Stent, Other. No: Pacemaker Amputation: No Fractures: Yes (hand) - *Social History Smoking Status: Never smoker Alcohol Intake: current Alcohol Intake Frequency:: holidays/special occasions only Substance Use Type: denies use *Occupational Status:: employed Housing: house Household Members: family *Travel in the last 8 weeks: None Family Hx:: Cancer, Hyperlipidemia, Hypertension
[2020-04-24 10:15] VITALS: BP 117/68; PULSE 66; RESP 18; TEMP 36.4; O2SAT 95
[2020-04-24 10:30] VITALS: BP 125/68; PULSE 58; RESP 18; TEMP 36.4; O2SAT 97
--- NOTE | 2020-04-24 10:44 | HMH.OPNOTE ---
Date of procedure: 04/24/20 Pre-op Diagnosis:: Trigger finger, right middle finger Post-op Diagnosis:: Same Procedure performed:: Trigger finger release, right middle finger Surgeon:: Miguel Christianson MD PHOTOCOPY OPERATOR:: Nathan Ford Anesthesia: local, other (IV sedation) Estimated blood loss (mL): 1 Clinical Note:: Patient is a 60-year-old gentleman with triggering of his right middle middle finger. He had symptoms for a length of time which failed to respond satisfactorily to conservative management. As the patient failed to respond adequately to conservative management and reports significant pain, disability and dysfunction with his right hand surgical release of the A1 pulleys was necessary to relieve symptoms, improve function and decrease the pain and to prevent permanent stiffness and damage. Operative findings:: The intraoperative findings showed very thickened and inflamed A1 pulleys of the middle finger. Also there was synovitis of the flexor tendon sheath. The flexors tendons are thickened and somewhat degenerate but there is no tear. There is no evidence of any space-occupying lesions over the tendons or within the A1 paddy. Operative note:: On the day of the surgery the patient was met in the preoperative area. Patient was positively identified and the operative site was marked and initialed by me. A physical examination was performed and the chart was updated. I again discussed the procedure, risks and benefits and alternatives with the patient. The complications discussed include but are not limited to- infection, injury to nerves, tendons and blood vessels, incisional scar (cosmesis), scar tenderness/contracture, DVT/PE, finger stiffness, bowstringing of the tendons, CRPS (complex regional pain syndrome- pain, sensory and temperature changes, swelling and stiffness), painful scar, incomplete relief of pain, incomplete return of function, recurrence and likely need for further surgery in future and also the risks of anesthesia including heart attack, stroke, and even . I have discussed how there is a small but real possibility of loss of use of the arm, loss of the limb or loss of life itself. I have also explained how additional surgery may be required if there are any complications or recurrence. We have also discussed the postoperative recovery and rehabilitation required, the likely need for hand therapy, the possibility of stiffness, chronic pain and we've also discussed the option of nonsurgical treatment. Patient asked appropriate questions and all have been answered by me. Patient wished to proceed with the surgery. Patient understood the risks, agreed to proceed with surgery, and no guarantees or assurances were given or implied. The patient was brought to the operating room and placed supine on the operating table. The right upper extremity was placed over a side table. All the bony prominences were well-padded. A well-padded double cuff tourniquet was placed over the right upper arm. The right upper extremity was prepped and draped in the usual sterile fashion. A preprocedure timeout was performed as per hospital policy. The skin incision is marked for right middle finger trigger release at the proximal extent of the A1 paddy. Patient was given IV sedation and local anesthesia administered with 8 cc of 0.5% Marcaine without epinephrine. The limb was exsanguinated with the Esmarch bandage and tourniquet was inflated to 250 mmHg. Please see nursing records for total tourniquet time. Next, a transverse incision approximately 1.5 cm in length was made just proximal to level of the A1 paddy for the middle finger. Dissection was carried through the subcutaneous fat down to the level of the flexor tendon sheath with care taken to identify and protect the neurovascular bundles. The sheath was opened under direct vision with a scalpel, and then a scissor was used to release it under direct vision from the proximal extent of the A1 paddy to just
[2020-04-24 10:45] VITALS: BP 120/71; PULSE 61; RESP 18; TEMP 36.1; O2SAT 97
== END 2020-04-24 10:45 | disposition home or self-care (01) ==
LOC: OR 07:34
PROVIDERS: PCP Family Medicine; Visit Provider Orthopaedic Surgery
PROC: (CPT 26055; principal; 2020-04-24 09:00)
DX: M65.331 Trigger finger, right middle finger (principal)
CPT/HCPCS: 26055; 96374

== ENCOUNTER 2020-04-26 19:33 | Emergency (ER) | payer BC, SELFPAY ==
[2020-04-26 19:44] VITALS: BP 134/69; PULSE 78; RESP 20; O2SAT 98; BMI 37.6
--- NOTE | 2020-04-26 20:02 | HMH.EDUTC ---
[facility] [place] Disposition Clinical Impression: Allergic reaction Qualifiers: Encounter type: initial encounter Qualified Code(s): T78.40XA - Allergy, unspecified, initial encounter Disposition: Home, Self-Care Condition on Discharge: Good Instructions: DI for General Allergic Reactions Additional Instructions: Avoid contact with the offending substance if you can identify it. Don't start the oral steroids until tomorrow. Follow up with your regular doctor. GO TO THE ER FOR ANY WORSENING SYMPTOMS OR CONCERNS Prescriptions: methylPREDNISolone [Medrol] 4 mg PO DIRECTED 6 Days #21 tab.ds.pk Transmission Status: Pending to [id number] Referrals: Ruddy Castillo MD [Primary Care Provider] - Time of Disposition: 20:06 Medical Decision Making - Medical Records Medical records reviewed: No: I reviewed the patient's medical records. - Goran Inquiry Pt receiving controlled substance: No Vital Signs: 04/26/20 19:44 Pulse Rate [Right Brachial] 78 Respiratory Rate 20 Blood Pressure [Right Arm] 134/69 Blood Pressure Mean [Right Arm] 90 Blood Pressure Source [Right Arm] Automatic Cuff Blood Pressure Position [Right Arm] Sitting 02 Sat by Pulse Oximetry 98 Oxygen Delivery Method Room Air [facility] [place] HPI - General Stated complaint: Hives Time Seen by Provider: 04/26/20 20:02 Mode of Arrival: Ambulatory Source of Information: Patient Limitations: No Limitations Description of Symptoms (Recalled from Triage Doc. by RN): PATIENT C/O HIVES TO BILATERAL FEET, HANDS, AND LIPS SINCE EARLIER THIS WEEK. PATIENT TOOK BENADRYL APPROX 1615 TODAY. NO KNOWN CAUSE HEENT Symptoms (Recalled from RN notes): No Resp Symptoms (Recalled from RN notes): No Skin Symptoms (Recalled from RN notes): Yes MS Symptoms (Recalled from RN notes): No Functional Status (Recalled from RN notes): WNL - History of Present Illness Provider Complaint: He c/o itching of his palms, soles of his feet and genealized over his body. He states that his symptoms began 3 days ago. - Related Data Home Medications Medication Instructions Recorded Confirmed aspirin 81 mg tablet,delayed 81 mg PO ONCE 09/07/17 04/26/20 release clopidogrel 75 mg tablet 75 mg PO ONCE 09/07/17 04/26/20 furosemide 40 mg tablet 40 mg PO ONCE 09/07/17 04/26/20 lisinopril 2.5 mg tablet 2.5 mg PO ONCE 09/07/17 04/26/20 potassium chloride 10 mEq 10 meq PO BID 09/07/17 04/26/20 capsule,extended release multivitamin 1 tab PO DAILY 06/15/18 04/26/20 Atorvastatin Calcium [Atorvastatin 80 mg PO DAILY 12/11/18 04/26/20 80mg Tab] Previous Rx's Medication Instructions Recorded methylPREDNISolone [Medrol] 4 mg PO DIRECTED 6 Days #21 04/26/20 tab.ds.pk Allergies Allergy/AdvReac Type Severity Reaction Status Date / Time penicillin G [PENICILLIN G] Allergy Unknown Verified 03/28/20 11:05 Penicillins Allergy Verified 03/28/20 11:05 - Worker's Comp Is this a Worker's Comp case?: No [facility] History - Hepatitis A Screen Drug use history?: No High risk sexual behaviors?: No History of sexually transmitted infection?: No Currently employed?: No Childcare worker?: No Do you have indoor plumbing?: Yes Do you have electricity?: Yes Attestation statement:: This patient has been screened for Hepatitis A risk factors. I have reviewed the patient's past medical history: Yes Medical History: Reports:: Arrhythmia, Congestive Heart Failure, Coronary Artery Disease, Hyperlipidemia, Hypertension, Myocardial Infarction Denies:: Cancer, Diabetes Mellitus Type 1, Diabetes Mellitus Type 2, Internal Pacemaker, MRSA, Seizures Other Medical History: Denies: Blood Transfusion Reaction Comment: DARWIN, obesity Laterality Cases: Right: Other Other Surgeries: Yes: Cholecystectomy, Colonoscopy, Coronary Stent, Other. No: Pacemaker Amputation: No Fractures: Yes (hand) - Social History Smoking Status: Never smoker Alcohol Intake: never Alcohol Intake Frequency:: holida
[2020-04-26 20:10] VITALS: TEMP 36.6
[2020-04-26 20:33] VITALS: BP 134/69; PULSE 78; RESP 20; TEMP 36.6; O2SAT 98
== END 2020-04-26 20:47 | disposition home or self-care (01) ==
PROVIDERS: Emergency Provider Nurse Practitioner Family; PCP Family Medicine
DX: T78.40XA Allergy, unspecified, initial encounter (principal); I25.2 Old myocardial infarction; I10 Essential (primary) hypertension; I25.10 Atherosclerotic heart disease of native coronary artery without angina pectoris; E78.5 Hyperlipidemia, unspecified; Z88.0 Allergy status to penicillin; Z79.899 Other long term (current) drug therapy
CPT/HCPCS: 96372; 99202

== ENCOUNTER 2020-04-30 19:44 | Emergency (ER) | payer BC, SELFPAY ==
[2020-04-30 20:15] VITALS: BP 154/93; PULSE 64; RESP 16; TEMP 36.8; O2SAT 99; BMI 37.6
--- NOTE | 2020-04-30 20:27 | HMH.EDUTC ---
[facility] [place] Clinical Impression: Allergic reaction Qualifiers: Encounter type: initial encounter Qualified Code(s): T78.40XA - Allergy, unspecified, initial encounter Disposition: Home, Self-Care Condition on Discharge: Good Instructions: DI for General Allergic Reactions Additional Instructions: Continue the oral steroids that you are on. Follow up with you primary care physician tomorrow as we discussed. GO TO THE ER FOR ANY WORSENING SYMPTOMS OR CONCERNS Referrals: Ruddy Castillo MD [Primary Care Provider] - Time of Disposition: 20:49 Medical Decision Making - Medical Records Medical records reviewed: No: I reviewed the patient's medical records. - Goran Inquiry Pt receiving controlled substance: No Vital Signs: 04/30/20 20:15 04/30/20 20:49 Temperature 98.3 F 98.3 F Temperature Source Oral Pulse Rate 64 Pulse Rate [Right Brachial] 64 Respiratory Rate 16 16 Blood Pressure 154/93 H Blood Pressure [Right Arm] 154/93 H Blood Pressure Mean [Right Arm] 113 Blood Pressure Source [Right Arm] Automatic Cuff Blood Pressure Position [Right Arm] Sitting 02 Sat by Pulse Oximetry 99 Oxygen Delivery Method Room Air Orders (Tests/Meds): ED MEDICATIONS Discontinued Medications Generic Name Dose Route Start Last Admin Trade Name Freq PRN Reason Stop Dose Admin Methylprednisolone Sodium Succinate 60 mg 04/30/20 20:33 04/30/20 20:40 Methylprednisolone Sod Succ 125mg Vial IM 04/30/20 20:34 60 mg ONCE ONE Administration [facility] [place]PI - General Stated complaint: Face/lip swelling Time Seen by Provider: 04/30/20 20:27 Mode of Arrival: Ambulatory Source of Information: Patient Limitations: No Limitations Description of Symptoms (Recalled from Triage Doc. by RN): PATIENT REPORTS HE WAS SEEN IN [facility] ON TUESDAY FOR HIVES TO FACE AND HANDS AND WAS GIVEN STEROIDS. TODAY HE C/O INCREASED LIP SWELLING HEENT Symptoms (Recalled from RN notes): Yes Resp Symptoms (Recalled from RN notes): No Skin Symptoms (Recalled from RN notes): No MS Symptoms (Recalled from RN notes): No Functional Status (Recalled from RN notes): WNL - History of Present Illness Provider Complaint: He is back with his lips swelling again. He was here 4 days ago with similar issues. He had a steroid shot and then started oral steroids. He states that he was fine until this morning, when he woke up with lower lip swelling. - Related Data Home Medications Medication Instructions Recorded Confirmed aspirin 81 mg tablet,delayed 81 mg PO ONCE 09/07/17 04/26/20 release clopidogrel 75 mg tablet 75 mg PO ONCE 09/07/17 04/26/20 furosemide 40 mg tablet 40 mg PO ONCE 09/07/17 04/26/20 lisinopril 2.5 mg tablet 2.5 mg PO ONCE 09/07/17 04/26/20 potassium chloride 10 mEq 10 meq PO BID 09/07/17 04/26/20 capsule,extended release multivitamin 1 tab PO DAILY 06/15/18 04/26/20 Atorvastatin Calcium [Atorvastatin 80 mg PO DAILY 12/11/18 04/26/20 80mg Tab] Previous Rx's Medication Instructions Recorded methylPREDNISolone [Medrol] 4 mg PO DIRECTED 6 Days #21 04/26/20 tab.ds.pk Allergies Allergy/AdvReac Type Severity Reaction Status Date / Time penicillin G [PENICILLIN G] Allergy Unknown Verified 03/28/20 11:05 Penicillins Allergy Verified 03/28/20 11:05 - Worker's Comp Is this a Worker's Comp case?: No [facility] History - Hepatitis A Screen Drug use history?: No High risk sexual behaviors?: No History of sexually transmitted infection?: No Currently employed?: No Childcare worker?: No Do you have indoor plumbing?: Yes Do you have electricity?: Yes Attestation statement:: This patient has been screened for Hepatitis A risk factors. I have reviewed the patient's past medical history: Yes Medical History: Reports:: Arrhythmia, Congestive Heart Failure, Coronary Artery Disease, Hyperlipidemia, Hypertension, Myocardial Infarction Denies:: Cancer, Diabetes Mellitus Type 1, Diabetes Melli
[2020-04-30 20:49] VITALS: BP 154/93; PULSE 64; RESP 16; TEMP 36.8; O2SAT 99
== END 2020-04-30 20:53 | disposition home or self-care (01) ==
PROVIDERS: Emergency Provider Nurse Practitioner Family; PCP Family Medicine
DX: T78.40XA Allergy, unspecified, initial encounter (principal); I10 Essential (primary) hypertension; I25.10 Atherosclerotic heart disease of native coronary artery without angina pectoris; I25.2 Old myocardial infarction; E78.5 Hyperlipidemia, unspecified; Z88.0 Allergy status to penicillin; Z79.899 Other long term (current) drug therapy
CPT/HCPCS: 96372; 99201

== ENCOUNTER 2020-05-04 09:57 | Emergency (ER) | payer BC, SELFPAY ==
[2020-05-04 10:27] VITALS: BP 114/78; PULSE 78; RESP 18; TEMP 36.6; O2SAT 100; BMI 36.9
--- NOTE | 2020-05-04 10:35 | HMH.EDUTC ---
[facility] [place] Impression: Urticaria Disposition: Home, Self-Care Condition on Discharge: Good Instructions: Hives, DI for Angioedema, DI for Hives Additional Instructions: Follow up with Family Doctor if no improvement or any worsening of symptoms *Take medication as prescribed FOllow up with [facility] FOllow up with Dermatology for further evaluation and examination to see what may be causing the rash Straight to ER if any life threatening symptoms Prescriptions: predniSONE [Deltasone 10mg tablet] 10 mg PO BID 5 Days #10 tab Transmission Status: Received by [id number] Referrals: Ruddy Castillo MD [Primary Care Provider] - Sai Mendoza [Referring] - Alli Edwards MD [Referring] - Time of Disposition: 10:49 Medical Decision Making - Goran Inquiry Pt receiving controlled substance: No Goran was queried for this patient: No Vital Signs: 05/04/20 10:27 Temperature 97.8 F Temperature Source Oral Pulse Rate [Radial] 78 Respiratory Rate 18 Blood Pressure [Right Arm] 114/78 Blood Pressure Mean [Right Arm] 90 Blood Pressure Source [Right Arm] Automatic Cuff Blood Pressure Position [Right Arm] Sitting 02 Sat by Pulse Oximetry 100 Oxygen Delivery Method Room Air Orders (Tests/Meds): ED MEDICATIONS Discontinued Medications Generic Name Dose Route Start Last Admin Trade Name Freq PRN Reason Stop Dose Admin Famotidine 20 mg 05/04/20 10:39 05/04/20 10:59 Famotidine 20mg Tablet PO 05/04/20 10:40 20 mg ONCE ONE Administration Methylprednisolone Sodium Succinate 125 mg 05/04/20 10:39 05/04/20 10:58 Methylprednisolone Sod Succ 125mg Vial IM 05/04/20 10:40 125 mg ONCE ONE Administration Medical Decision Narrative: swelling and urticaria around eye improved [facility] [place] - General Stated complaint: hives Time Seen by Provider: 05/04/20 10:35 Mode of Arrival: Ambulatory Source of Information: Patient Limitations: No Limitations Description of Symptoms (Recalled from Triage Doc. by RN): hives, has been seen by Dr. Castillo, has had 2 steroid shots. HEENT Symptoms (Recalled from RN notes): No Resp Symptoms (Recalled from RN notes): No Skin Symptoms (Recalled from RN notes): Yes MS Symptoms (Recalled from RN notes): No Functional Status (Recalled from RN notes): wnl - History of Present Illness Provider Complaint: Patient states that over the last couple of weeks patient has been breaking out in hives States that he has been seen multiple times by his PCP and given steriod injection and over the counter Steriods States that he finished oral steriods yesterday and today he is broke out again with hives States that they was iching and hurting so he came in to get checked - Related Data Home Medications Medication Instructions Recorded Confirmed aspirin 81 mg tablet,delayed 81 mg PO ONCE 09/07/17 04/26/20 release clopidogrel 75 mg tablet 75 mg PO ONCE 09/07/17 04/26/20 furosemide 40 mg tablet 40 mg PO ONCE 09/07/17 04/26/20 lisinopril 2.5 mg tablet 2.5 mg PO ONCE 09/07/17 04/26/20 potassium chloride 10 mEq 10 meq PO BID 09/07/17 04/26/20 capsule,extended release multivitamin 1 tab PO DAILY 06/15/18 04/26/20 Atorvastatin Calcium [Atorvastatin 80 mg PO DAILY 12/11/18 04/26/20 80mg Tab] Previous Rx's Medication Instructions Recorded methylPREDNISolone [Medrol] 4 mg PO DIRECTED 6 Days #21 04/26/20 tab.ds.pk predniSONE [Deltasone 10mg tablet] 10 mg PO BID 5 Days #10 tab 05/04/20 Allergies Allergy/AdvReac Type Severity Reaction Status Date / Time penicillin G [PENICILLIN G] Allergy Unknown Verified 03/28/20 11:05 Penicillins Allergy Verified 03/28/20 11:05 - Worker's Comp Is this a Worker's Comp case?: No [facility] History - Hepatitis A Screen Drug use history?: No High risk sexual behaviors?: No History of sexually transmitted infection?: No Currently employed?: No Childcare worker?: No
[2020-05-04 11:19] VITALS: BP 114/78; PULSE 78; RESP 18; TEMP 36.6; O2SAT 100
== END 2020-05-04 11:20 | disposition home or self-care (01) ==
PROVIDERS: Emergency Provider Nurse Practitioner; PCP Family Medicine
DX: L50.0 Allergic urticaria (principal); I25.10 Atherosclerotic heart disease of native coronary artery without angina pectoris; I25.2 Old myocardial infarction; I10 Essential (primary) hypertension; E78.5 Hyperlipidemia, unspecified; Z79.899 Other long term (current) drug therapy
CPT/HCPCS: 96372; 99201

== ENCOUNTER 2020-06-03 17:47 | Emergency (ER) | payer BC, SELFPAY ==
[2020-06-03] VITALS (7 sets, daily range): BP systolic 115–158; BP diastolic 66–92; PULSE 64–78; RESP 14–18; TEMP 36.7–36.8; O2SAT 96–99; BMI 37.6
--- NOTE | 2020-06-03 17:50 | ECG_ITS ---
APPROVED REPORT Exam: Resting ECG HR:76 bpm ECG Measurements Heart Rate 76 AXES ME 154 P 47 QRSd 90 QRS -13 QT 388 T 35 QTc 436 Conclusion Normal sinus rhythm Nonspecific ST abnormality Abnormal ECG Electronically signed by : Ruddy Quinonez, 06/04/2020 05:44:45
--- NOTE | 2020-06-03 17:50 | XR_ITS ---
PROCEDURE: XR CHEST 2V CLINICAL HISTORY: CHEST PAIN COMPARISON: No exams were available for comparison FINDINGS: The cardiomediastinal silhouette and pulmonary vascularity are within normal limits. The lungs are clear without infiltrates, suspicious nodules, or pleural effusions. There is bowel interposition on the right as a normal variant. No acute bony findings. IMPRESSION: No acute findings. Dictated by: Bjorn Turk MD 06/03/2020 21:22 Bjorn Turk MD in [place] 06/03/2020 21:22
--- NOTE | 2020-06-03 17:51 | HMH.EDGENADL ---
ED Disposition Condition on Discharge: Good - Critical Care Critical Care Time: No <Costa Monaco - Last Filed: 06/03/20 20:02> <Morgan Scott - Last Filed: 06/03/20 20:31> Clinical Impression: Chest pain, atypical Disposition: Home, Self-Care Instructions: DI for Atypical Chest Pain Additional Instructions: see card and pcp for follow up Prescriptions: Pantoprazole Sodium [Protonix 40mg tablet] 40 mg PO DAILY #15 tab Transmission Status: Received by [id number] Referrals: Ruddy Castillo MD [Primary Care Provider] - Attestation: On 06/03/20, the high probability of a clinically significant, sudden or life threatening deterioration of the following system(s) required my full and direct attention, intervention and personal management. The time I documented below is in addition to time spent performing reported procedures but includes the following listed in this critical care notation. Medical Decision Making - Medical Records Medical records reviewed: Yes: I reviewed the patient's medical records. MR Comment: He was seen here in the emergency department 11/04/2019 for chest pain which was felt to be chest wall pain. He says he did follow-up with his hat band attacher after that, no follow-up testing ordered by hat band attacher - Goran Goldman Pt receiving controlled substance: No - Lab Data Result diagrams: 06/03/20 18:15 06/03/20 18:15 - Radiology Data #1 Image(s): Chest Image Reviewed: Yes I reviewed the patient's radiology image Preliminary Findings: Normal/NAD - Reevaluation(s) Time: 19:14 - KAYLYNN Score for Non-Stemi Age of Patient: 60-69 years old <Costa Monaco - Last Filed: 06/03/20 20:02> - Lab Data Result diagrams: 06/03/20 18:15 06/03/20 18:15 <Morgan Scott - Last Filed: 06/03/20 20:31> Vital Signs: 06/03/20 17:48 06/03/20 18:18 06/03/20 18:30 Temperature 98.2 F Temperature Source Oral Pulse Rate [Radial] 78 68 66 Respiratory Rate 16 14 18 Blood Pressure [Right Arm] 158/92 H 125/78 116/71 Blood Pressure Mean [Right Arm] 114 93 86 Blood Pressure Source [Right Arm] Automatic Cuff Automatic Cuff Blood Pressure Position [Right Arm] Sitting Sitting Sitting 02 Sat by Pulse Oximetry 98 99 99 Oxygen Delivery Method Room Air Room Air Room Air 06/03/20 19:00 06/03/20 19:30 Temperature Temperature Source Pulse Rate [Radial] 66 71 Respiratory Rate 18 16 Blood Pressure [Right Arm] 124/73 115/66 Blood Pressure Mean [Right Arm] 90 82 Blood Pressure Source [Right Arm] Automatic Cuff Automatic Cuff Blood Pressure Position [Right Arm] Sitting Sitting 02 Sat by Pulse Oximetry 99 96 Oxygen Delivery Method Room Air Room Air - Lab Data Lab Results 06/03/20 18:15: WBC 9.3, RBC 5.02, Hgb 15.3, Hct 45.6, MCV 90.8, MCH 30.4, MCHC 33.5, RDW 13.3, Plt Count 416, MPV 7.6, Neut % (Auto) 60.3, Lymph % (Auto) 30.3, Stoddard % (Auto) 5.3, Eos % (Auto) 3.6, Baso % (Auto) 0.5, Neut # (Auto) 5.6, Lymph # (Auto) 2.8, Stoddard # (Auto) 0.5, Eos # (Auto) 0.3, Baso # (Auto) 0.1 06/03/20 18:15: Sodium 139, Potassium 3.6, Chloride 103, Carbon Dioxide 31 H, Anion Gap 8.6, BUN 16, Creatinine 0.80, Estimated Creat Clear 134, Estimated GFR 98, Est GFR ( Amer) 119, Glucose 94, Calcium 9.4, Troponin I < 0.01 06/03/20 18:15: Total Bilirubin 0.6, Direct Bilirubin 0.1, Conjugated Bilirubin 0.0, Indirect Bilirubin 0.5, Unconjugated Bilirubin 0.4, AST 25, ALT 23, Alkaline Phosphatase 123, Total Protein 6.6, Albumin 4.1 06/03/20 18:15: Troponin I < 0.01 Orders (Tests/Meds): ED MEDICATIONS Discontinued Medications Generic Name Dose Route Start Last Admin Trade Name Freq PRN Reason Stop Dose Admin Aspirin 324 mg 06/03/20 17:52 06/03/20 18:02 Aspirin 81mg Chewable Tablet PO 06/03/20 17:53 324 mg ONCE ONE Administration Pantoprazole Sodium 40 mg 06/03/20 19:15 06/03/20 19:47 Pantoprazole 40mg Tablet PO 06/03/20 19:16 40 mg ONCE ONE Administrati
[2020-06-03 18:45] LABS: Chloride 103 mmol/L (98-107); Potassium 3.6 mmoL/L (3.5-5.1); Sodium 139 mmol/L (136-145)
[2020-06-03 18:48] LABS: Anion Gap 8.6 mEq/L (5-15); Blood Urea Nitrogen 16 mg/dl (9-20); Carbon Dioxide 31 mmol/L (22.0-30.0); Creatinine Clearance Estimated 134 mL/min (50-200); Estimated Glomerular Filt Rate 98 ml/min (>60); GFR (African American) 119 ML/MIN (>60)
[2020-06-03 18:49] LABS: Alanine Aminotransferase 23 U/L (12-78); Albumin Level 4.1 g/dl (3.5-5.0); Alkaline Phosphatase 123 U/L (38-126); Aspartate Amino Transferase 25 U/L (17-59); Bilirubin,Direct 0.1 mg/dl (0.0-0.4); Bilirubin,Indirect 0.5 mg/dL (0.0-0.9); Bilirubin,Total 0.6 mg/dl (0.2-1.3); Bilirubin,Unconjugated 0.4 mg/dL (0.0-1.1); Calcium 9.4 mg/dl (8.4-10.2); Glucose 94 mg/dl (74-100); Total Protein,Serum 6.6 g/dl (6.3-8.2)
--- NOTE | 2020-06-03 18:53 | PC.NURSE ---
FAMILY AT BEDSIDE. PT DENIES ANY PAIN
[2020-06-03 18:54] LABS: Basophils # 0.1 K/mm3 (0-0.2); Basophils % 0.5 % (0.1-2.0); Eosinophils # 0.3 K/mm3 (0.0-0.4); Eosinophils % 3.6 % (0.1-12.0); Hematocrit 45.6 % (42.0-52.0); Hemoglobin 15.3 g/dL (14.1-18.0); Lymphocytes # 2.8 K/mm3 (0.7-4.5); Lymphocytes % 30.3 % (10-50); Mean Corpuscular HGB Conc 33.5 g/dL (31.8-35.4); Mean Corpuscular Hemoglobin 30.4 pg (27.0-31.2); Mean Corpuscular Volume 90.8 fl (80-94); Mean Platelet Volume 7.6 fl (7.4-10.4); Monocytes # 0.5 K/mm3 (0.1-1.0); Monocytes % 5.3 % (1.7-9.3); Neutrophils # 5.6 K/mm3 (1.8-7.8); Neutrophils % 60.3 % (37.0-80.0); Platelet Count 416 K/mm3 (142-424); Red Blood Count 5.02 M/mm3 (4.60-6.20); Red Cell Distribution Width 13.3 % (11.5-17.5); White Blood Count 9.3 K/mm3 (4.8-10.8)
[2020-06-03 19:08] LABS: Troponin I < 0.01 ng/ml (0.00-0.034)
--- NOTE | 2020-06-03 19:25 | PC.NURSE ---
received report from day shift. Pt is waiting on second trop. to be discharged.
[2020-06-03 20:20] LABS: Troponin I < 0.01 ng/ml (0.00-0.034)
== END 2020-06-03 20:44 | disposition home or self-care (01) ==
PROVIDERS: Emergency Provider Emergency Medicine; PCP Family Medicine
DX: R07.89 Other chest pain (principal); I25.10 Atherosclerotic heart disease of native coronary artery without angina pectoris; I25.2 Old myocardial infarction; I10 Essential (primary) hypertension; E78.5 Hyperlipidemia, unspecified; Z79.899 Other long term (current) drug therapy; Z88.0 Allergy status to penicillin
CPT/HCPCS: 71046; 80048; 80076; 84484; 85025; 93005; 99283

== ENCOUNTER → 2020-11-25 14:08 | Outpatient (CLI) | payer BC, SELFPAY ==
--- NOTE | 2020-11-25 14:15 | XR_ITS ---
PROCEDURE: XR HAND RT MIN 3V CLINICAL INDICATION: right hand pain; 4th digit COMPARISON: CR [id number] XR hand RT min 3V from 09/28/2018 CR XR HAND RT MIN 3V from 12/05/2019 FINDINGS: There is an area of cortical lucency involving the distal and radial aspect of the proximal phalanx of the 4th finger. The joint spaces are well-preserved. No significant degenerative/arthritic changes. No erosive changes evident. Other findings:None. IMPRESSION: There is a questionable small area of erosion involving the distal and radial aspect of the proximal phalanx of the 4th finger. A juxta-articular erosive change from arthritis is a consideration. Please correlate with patient's clinical parameters. Dictated by: Bjorn Turk MD 11/25/2020 14:54 Bjorn Turk MD in [place] 11/25/2020 14:54
== END ==
PROVIDERS: PCP Family Medicine; Visit Provider Orthopaedic Surgery
DX: M79.641 Pain in right hand (principal)
CPT/HCPCS: 73130

== ENCOUNTER → 2021-01-08 12:30 | Outpatient (CLI) | payer BC, SELFPAY ==
--- NOTE | 2021-01-08 12:33 | XR_ITS ---
PROCEDURE: XR HIP RT 2-3V W/PELVIS CLINICAL INDICATION: right hip pain COMPARISON: CR PELAP PELVIS AP ONLY from 09/21/2013 FINDINGS: Minimal osteoarthritic change noted of the right hip with mild sclerosis of the inferior aspect of the right SI joint. No acute fracture or dislocation. No lytic or blastic change. IMPRESSION: Mild degenerative changes Dictated by: Bjorn Turk MD 01/08/2021 13:07 Bjorn Turk MD in [place] 01/08/2021 13:07
== END ==
PROVIDERS: PCP Family Medicine; Visit Provider Orthopaedic Surgery
DX: M25.551 Pain in right hip (principal)
CPT/HCPCS: 73502

== ENCOUNTER → 2021-04-03 12:05 | Outpatient (CLI) | payer BC, SELFPAY | PROVIDERS: PCP Family Medicine; Visit Provider Nurse Practitioner | DX: Z20.822 Contact with and (suspected) exposure to COVID-19 (principal) | CPT/HCPCS: C9803; U0003; U0005 ==

== ENCOUNTER 2021-04-12 09:04 | Emergency (ER) | payer BC, SELFPAY ==
[2021-04-12 09:14] VITALS: BP 135/74; PULSE 67; RESP 18; TEMP 36.4; O2SAT 98; BMI 39.0
[2021-04-12 09:25] VITALS: BP 135/74; PULSE 67; RESP 18; TEMP 36.4
--- NOTE | 2021-04-12 09:28 | HMH.EDUTC ---
[facility] [place] Clinical Impression: Encounter for screening for COVID-19 Disposition: Home, Self-Care Condition on Discharge: Good Instructions: Preventing the Spread of Coronavirus Discharge Instructions Additional Instructions: Drink plenty of fluids. Take tylenol for pain or fever. Return if you begin to have difficulty breathing. Follow up with your regular doctor. GO TO THE ER FOR ANY WORSENING SYMPTOMS Quarantine until you know the results of your covid-19 test. If it is positive, the health department should call you and give you further instructions about your length of Quarantine and other things. Notify your school or workplace of your results and follow their instructions regarding return to work/school. Referrals: Ruddy Castillo MD [Primary Care Provider] - Time of Disposition: 09:29 Medical Decision Making - Medical Records Medical records reviewed: No: I reviewed the patient's medical records. - Goran Inquiry Pt receiving controlled substance: No Vital Signs: 04/12/21 09:14 04/12/21 09:25 Temperature 97.5 F L 97.5 F L Temperature Source Oral Pulse Rate 67 Pulse Rate [Left] 67 Respiratory Rate 18 18 Blood Pressure 135/74 Blood Pressure [Right Arm] 135/74 Blood Pressure Mean [Right Arm] 94 02 Sat by Pulse Oximetry 98 [facility] [place] - General Stated complaint: covid test Time Seen by Provider: 04/12/21 09:30 Mode of Arrival: Ambulatory Source of Information: Patient Limitations: No Limitations Description of Symptoms (Recalled from Triage Doc. by RN): covid test. pt was out of state and needs a negative to resume PT HEENT Symptoms (Recalled from RN notes): No Resp Symptoms (Recalled from RN notes): No Skin Symptoms (Recalled from RN notes): No MS Symptoms (Recalled from RN notes): No Functional Status (Recalled from RN notes): na - History of Present Illness Provider Complaint: He is here needing a covid-19 test. He is having to follow up closely with a hand surgeon in [place] over a finger injury her recieved. He has recently been on vacation and the hand specialist wants him to be tested for covid-19 before he comes for his appt there in 3 days. - Related Data Home Medications Medication Instructions Recorded Confirmed aspirin 81 mg tablet,delayed 81 mg PO ONCE 03/07/18 07/22/21 release clopidogrel 75 mg tablet 75 mg PO ONCE 09/07/17 01/22/21 furosemide 40 mg tablet 40 mg PO TID 09/07/17 01/22/21 potassium chloride 10 mEq 10 meq PO BID 09/07/17 01/22/21 capsule,extended release multivitamin 1 tab PO DAILY 06/15/18 01/22/21 Atorvastatin Calcium [Atorvastatin 80 mg PO DAILY 12/11/18 01/22/21 80mg Tab] Previous Rx's Medication Instructions Recorded Pantoprazole Sodium [Protonix 40mg 40 mg PO DAILY #15 tab 06/03/20 tablet] Allergies Allergy/AdvReac Type Severity Reaction Status Date / Time penicillin G [PENICILLIN G] Allergy Unknown Verified 01/22/21 16:37 Penicillins Allergy Verified 01/22/21 16:37 - Worker's Comp Is this a Worker's Comp case?: No [facility] History - Hepatitis A Screen Drug use history?: No High risk sexual behaviors?: No History of sexually transmitted infection?: No Currently employed?: No Childcare worker?: No Do you have indoor plumbing?: Yes Do you have electricity?: Yes Attestation statement:: This patient has been screened for Hepatitis A risk factors. I have reviewed the patient's past medical history: Yes Medical History: Reports:: Arrhythmia, Congestive Heart Failure, Coronary Artery Disease, Hyperlipidemia, Hypertension, Myocardial Infarction Denies:: Cancer, Diabetes Mellitus Type 1, Diabetes Mellitus Type 2, Internal Pacemaker, MRSA, Seizures Other Medical History: Denies: Blood Transfusion Reaction Comment: DARWIN, obesity Laterality Cases: Right: Other Other Surgeries: Yes: Cholecystectomy, Colonoscopy, Coronary Stent, Other. No: Pacemaker Amputation: No Fractures: Yes (hand)
== END 2021-04-12 09:33 | disposition home or self-care (01) ==
PROVIDERS: Emergency Provider Nurse Practitioner Family; PCP Family Medicine
DX: Z20.822 Contact with and (suspected) exposure to COVID-19 (principal)
CPT/HCPCS: 99202; C9803; G0463; U0003; U0005

== ENCOUNTER 2022-06-26 09:47 | Emergency (ER) | payer BC, OTHER, SELFPAY ==
[2022-06-26 10:30] VITALS: BP 124/68; PULSE 98; RESP 17; TEMP 36.8; O2SAT 98; BMI 39.2
[2022-06-26 10:50] VITALS: BP 124/68; PULSE 98; RESP 17; TEMP 36.8; O2SAT 98
[2022-06-26 10:54] LABS: Adenovirus,PCR Not Detected (NotDetected); Bordetella Pertussis Not Detected (NotDetected); Chlamydophila Pneumoniae, PCR Not Detected (NotDetected); Coronavirus 19, PCR Not Detected (NotDetected); Coronavirus 229E Not Detected (NotDetected); Coronavirus OC43 Not Detected (NotDetected); Coronovirus HKU1,PCR Not Detected (NotDetected); Human Metapneumovirus Not Detected (NotDetected); Influenza A, PCR Not Detected (NotDetected); Influenza AH1, 2009 Not Detected (NotDetected); Influenza AH1, PCR Not Detected (NotDetected); Influenza AH3,PCR Not Detected (NotDetected); Influenza B, PCR Not Detected (NotDetected); Mycoplasma Pneumoniae, PCR Not Detected (NotDetected); Parainfluenza 1, PCR Not Detected (NotDetected); Parainfluenza 2, PCR Not Detected (NotDetected); Parainfluenza 3, PCR Not Detected (NotDetected); Parainfluenza 4, PCR Not Detected (NotDetected); Respiratory Syncytial Virus Not Detected (NotDetected); Rhinovirus/Enterovirus Not Detected (NotDetected)
--- NOTE | 2022-06-26 10:56 | EXP.UTC ---
Discharge Plan Disposition Patient Disposition: Home, Self-Care Condition: Good Prescriptions Prescriptions: New benzonatate 100 mg capsule 100 mg PO TID PRN (Reason: cough) Qty: 30 0RF No Action multivitamin [Daily Multi-Vitamin] tablet 1 tab PO DAILY clopidogrel [Plavix] 75 mg tablet 75 mg PO ONCE furosemide [Lasix] 40 mg tablet 40 mg PO TID aspirin 81 mg tablet,delayed release (DR/EC) 81 mg PO ONCE potassium chloride 10 mEq capsule, extended release 10 meq PO BID atorvastatin 80 MG tablet 80 mg PO DAILY pantoprazole 40 MG tablet,delayed release (DR/EC) 40 mg PO DAILY Qty: 15 0RF Referrals Follow up/Referrals: Armida Savage APRN [Primary Care Provider] - See instructions Activity Restrictions/Add. Instructions Additional Instructions/Restrictions: *Monitor Temp, Over the counter Motrin or Tylenol as directed/as needed Tylenol every 4 hours and Motrin every 6 hours (as long as your family doctor has told you that you can take it) for fever or pain. and straight to ER if unable to lower temp less than 101.0 after medication given *Warm salt water gargles may help to soothe the throat *Throat Lozenges? *Warm fluids like tea with honey may help to soothe the throat? *Sleep elevated *Humidifier/Vaporizer Follow up IMMEDIATELY for new or worsening symptoms or no Noticeable improvement over the next 48-72 hours. 911 for difficulty breathing or swallowing You were tested for today for COVID19 your test result should be back in the next 24-48 hours, you may check your results on the [facility] [employer] [facility] Clinical Impressions Clinical Impression: URI (upper respiratory infection) Instructions Patient Instructions: Cough, DI for Nasal Congestion Discharge ED Provider: Yvette Kern [facility] [place] HPI General Stated complaint: congestion Mode of Arrival: Ambulatory Source of Information: Patient Limitations: No Limitations Time Seen by Provider: 06/26/22 10:57 Description of Symptoms (Recalled from Triage Doc. by RN): PTAIENT C/O CONGESTION AND COUGH X 2 DAYS HEENT Symptoms (Recalled from RN notes): No Resp Symptoms (Recalled from RN notes): Yes Skin Symptoms (Recalled from RN notes): No MS Symptoms (Recalled from RN notes): No Functional Status (Recalled from RN notes): WNL History of Present Illness Provider Complaint: Patient states that he has been having nasal congestion and cough for a couple of days that has not got any better States that drainage is clear but he is having pressure like feeling behind his eyes so he came in to get checked Related Data Home Medications Medication Instructions Recorded Confirmed aspirin 81 mg tablet,delayed 81 mg PO ONCE heart. 09/07/17 01/22/21 release clopidogrel 75 mg tablet (Plavix) 75 mg PO ONCE heart. 09/07/17 01/22/21 furosemide 40 mg tablet (Lasix) 40 mg PO TID fluid-b/p 09/07/17 01/22/21 potassium chloride 10 mEq 10 meq PO BID Supplement 09/07/17 01/22/21 capsule,extended release multivitamin (Daily Multi-Vitamin 1 tab PO DAILY Supplement 06/15/18 01/22/21 tablet) atorvastatin 80 mg tablet 80 mg PO DAILY High cholesterol 12/11/18 01/22/21 Previous Rx's Medication Instructions Recorded pantoprazole 40 mg tablet,delayed 40 mg PO DAILY #15 tabs 06/03/20 release benzonatate 100 mg capsule 100 mg PO TID PRN cough #30 caps 06/26/22 Allergies Allergy/AdvReac Type Severity Reaction Status Date / Time penicillin G [PENICILLIN G] Allergy Unknown Verified 01/22/21 16:37 Penicillins Allergy Verified 01/22/21 16:37 Worker's Comp Is this a Worker's Comp case?: No [facility] Disclaimer: The information contained in this section may have been updated after the patient was seen, as this information can be updated by other users. Medical History (Updated 06/26/22 @ 11:01 by Yvette Kern APRN) History of heart attack Surgical History (Updated 06/26/22 @ 10:48 by Alyssa
[2022-06-26 18:28] LABS: Coronavirus NL63 Detected (NotDetected)
== END 2022-06-26 11:30 | disposition home or self-care (01) ==
PROVIDERS: Emergency Provider Nurse Practitioner; PCP Nurse Practitioner Family
DX: U07.1 COVID-19 (principal)
CPT/HCPCS: 87581; 87632; 87798; 96372; 99212; C9803; G0463; U0003; U0005

== ENCOUNTER → 2022-10-01 08:21 | Outpatient (CLI) | payer BC, OTHER, SELFPAY ==
--- NOTE | 2022-10-01 08:24 | XR_ITS ---
FINAL REPORT CLINICAL HISTORY: shoulder pain, cant lift arm out COMPARISON: none FINDINGS: Three views of the left shoulder were obtained. There is no prior exam for comparison. There is no fracture or dislocation. The joint space is preserved. Soft tissues are normal. IMPRESSION: No acute osseous abnormality of the left shoulder. Reviewed, Interpreted and Dictated by Benita Simms MD Transcribed by Nehal Lopez Authenticated and [facility]
== END ==
PROVIDERS: PCP Nurse Practitioner Family; Visit Provider Orthopaedic Surgery
DX: M25.512 Pain in left shoulder (principal)
CPT/HCPCS: 73030

== ENCOUNTER 2022-10-17 16:20 | Emergency (ER) | payer BC, OTHER, SELFPAY ==
[2022-10-17 16:45] VITALS: BP 140/78; PULSE 68; RESP 19; TEMP 36.9; O2SAT 98; BMI 38.6
--- NOTE | 2022-10-17 17:05 | EXP.UTC ---
Discharge Plan Disposition Patient Disposition: Home, Self-Care Condition: Good Prescriptions Prescriptions: New promethazine-DM 6.25-15 mg/5 mL syrup 5 ml PO Q6H PRN (Reason: cough) Qty: 118 0RF prednisone 10 mg tablet 10 mg PO BID 5 Days Qty: 10 0RF azithromycin [Zithromax Z-Reji] 250 mg tablet See Rx Instructions .ROUTE .COMPLEX 5 Days Qty: 6 0RF Rx Instructions: For 250 mg dose pack: take 500 mg today (day 1), then 250 mg for 4 days (days 2-5) No Action multivitamin [Daily Multi-Vitamin] tablet 1 tab PO DAILY montelukast 10 mg tablet 10 mg PO DAILY potassium chloride 20 mEq tablet,ER particles/crystals 20 meq PO BID losartan 25 mg tablet 25 mg PO DAILY All Day Allergy (cetirizine) 10 mg capsule 10 mg PO BID PRN famotidine 20 mg tablet 20 mg PO BID clopidogrel [Plavix] 75 mg tablet 75 mg PO ONCE furosemide [Lasix] 40 mg tablet 40 mg PO TID aspirin 81 mg tablet,delayed release (DR/EC) 81 mg PO ONCE atorvastatin 80 MG tablet 80 mg PO DAILY Referrals Follow up/Referrals: Armida Savage APRN [Primary Care Provider] - See instructions Activity Restrictions/Add. Instructions Additional Instructions/Restrictions: Start antibiotic today. Be sure to complete entire prescription even if feeling better Monitor temp. Tylenol every 4 hours as needed and / or ibuprofen every 6 hours as needed ( As long as your primary care physician has told you that it ok to take both. For fever/aches/pains ER if no less than 101 despite Tylenol or Motrin Humidifier/vaporizer or hot steamy shower *Promethazine DM cough syrup will cause drowsiness. Use only at night. No driving, operating machinery or caring for small children after taking it *Start steroid tomorrow Helps with inflammation therefore, cough and wheezing. Follow directions on the package. Reviewed side effects. Patient reports taking them before. Follow up IMMEDIATELY for new or worsening of symptoms OR no noticeable improvement over the next 48-72 hours. 911 immediately for any life threatening symptoms such as chest pain or difficulty breathing Clinical Impressions Clinical Impression: Bronchitis Sinusitis Qualifiers: Sinusitis location: unspecified location Chronicity: unspecified Qualified Code(s): J32.9 - Chronic sinusitis, unspecified Instructions Patient Instructions: Sinusitis, Acute Bronchitis, DI for Sinusitis Discharge ED Provider: Yvette Kern [facility] [place] General Stated complaint: Cough; runny nose Mode of Arrival: Ambulatory Source of Information: Patient Limitations: No Limitations Time Seen by Provider: 10/17/22 17:05 Description of Symptoms (Recalled from Triage Doc. by RN): PATIENT C/O PRODUCTIVE COUGH, CHEST CONGESTION AND RUNNY NOSE SINCE YESTERDAY HEENT Symptoms (Recalled from RN notes): Yes Resp Symptoms (Recalled from RN notes): Yes Skin Symptoms (Recalled from RN notes): No MS Symptoms (Recalled from RN notes): No Functional Status (Recalled from RN notes): WNL History of Present Illness Provider Complaint: Patient states that he has been having sinus drainage and thought it was just allergies but yesterday he felt like it moved into his chest and started with cough that is productive at times, scratchy throat, chest congestion and sinus congestion States that today he wasnt feeling any better so he came in to get checked Related Data Home Medications Medication Instructions Recorded Confirmed aspirin 81 mg tablet,delayed 81 mg PO ONCE heart. 09/07/17 10/12/22 release clopidogrel 75 mg tablet (Plavix) 75 mg PO ONCE heart. 09/07/17 10/12/22 furosemide 40 mg tablet (Lasix) 40 mg PO TID fluid-b/p 09/07/17 10/12/22 multivitamin (Daily Multi-Vitamin 1 tab PO DAILY Supplement 06/15/18 10/12/22 tablet) atorvastatin 80 mg tablet 80 mg PO DAILY High cholesterol 12/11/18 10/12/22 cetirizine 10 mg capsule
[2022-10-17 17:25] VITALS: BP 140/78; PULSE 68; RESP 19; TEMP 36.9; O2SAT 98
== END 2022-10-17 17:28 | disposition home or self-care (01) ==
PROVIDERS: Emergency Provider Nurse Practitioner; PCP Nurse Practitioner Family
DX: J20.9 Acute bronchitis, unspecified (principal)
CPT/HCPCS: 96372; 99212; 99214; G0463

== ENCOUNTER 2022-11-22 09:12 | Emergency (ER) | payer BC, OTHER, SELFPAY ==
[2022-11-22 09:25] VITALS: BP 141/85; PULSE 72; RESP 18; TEMP 36.9; O2SAT 100; BMI 36.5
--- NOTE | 2022-11-22 09:40 | EXP.UTC ---
Discharge Plan Disposition Patient Disposition: Home, Self-Care Condition: Good Prescriptions Prescriptions: New doxycycline monohydrate 100 mg capsule 100 mg PO BID 10 Days Qty: 20 0RF prednisone 10 mg tablet 10 mg PO BID 5 Days Qty: 10 0RF benzonatate 100 mg capsule 100 mg PO TID PRN (Reason: cough) Qty: 30 0RF No Action multivitamin [Daily Multi-Vitamin] tablet 1 tab PO DAILY montelukast 10 mg tablet 10 mg PO DAILY potassium chloride 20 mEq tablet,ER particles/crystals 20 meq PO BID losartan 25 mg tablet 25 mg PO DAILY All Day Allergy (cetirizine) 10 mg capsule 10 mg PO BID PRN famotidine 20 mg tablet 20 mg PO BID clopidogrel [Plavix] 75 mg tablet 75 mg PO ONCE furosemide [Lasix] 40 mg tablet 40 mg PO TID aspirin 81 mg tablet,delayed release (DR/EC) 81 mg PO ONCE atorvastatin 80 MG tablet 80 mg PO DAILY prednisone 10 mg tablet 10 mg PO BID 5 Days Qty: 10 0RF azithromycin [Zithromax Z-Reji] 250 mg tablet See Rx Instructions .ROUTE .COMPLEX 5 Days Qty: 6 0RF Rx Instructions: For 250 mg dose pack: take 500 mg today (day 1), then 250 mg for 4 days (days 2-5) benzonatate 100 mg capsule 100 mg PO TID PRN (Reason: cough) Qty: 30 0RF Referrals Follow up/Referrals: Armida Savage APRN [Primary Care Provider] - See instructions Activity Restrictions/Add. Instructions Additional Instructions/Restrictions: Start antibiotic today. Be sure to complete entire prescription even if feeling better Monitor temp. Tylenol every 4 hours as needed and / or ibuprofen every 6 hours as needed ( As long as your primary care physician has told you that it ok to take both. For fever/aches/pains ER if no less than 101 despite Tylenol or Motrin Humidifier/vaporizer or hot steamy shower *Tessalon Perles will not cause drowsiness but use at bedtime to help stop cough so that you may get some rest. *Start steroid today. Helps with inflammation therefore, cough and wheezing. Follow directions on the package. Reviewed side effects. Patient reports taking them before. Follow up IMMEDIATELY for new or worsening of symptoms OR no noticeable improvement over the next 48-72 hours. 911 immediately for any life threatening symptoms such as chest pain or difficulty breathing Clinical Impressions Clinical Impression: Bronchitis, Sinusitis Instructions Patient Instructions: DI for Sinusitis, Sinusitis [place]charge ED Provider[place] Yvette [place] [facility] [place] General Stated complaint: Cough, chest congestion Mode of Arrival: Ambulatory Source of Information: Patient Limitations: No Limitations Time Seen by Provider: 11/22/22 09:40 Description of Symptoms (Recalled from Triage Doc. by RN): PATIENT C/O POSSIBLE BRONCHITIS SINCE TUESDAY HEENT Symptoms (Recalled from RN notes): No Resp Symptoms (Recalled from RN notes): Yes Skin Symptoms (Recalled from RN notes): No MS Symptoms (Recalled from RN notes): No Functional Status (Recalled from RN notes): WNL History of Present Illness Provider Complaint: Patient states that he feels like he may have bronchitis again States that he has been having the cough again and at times will cough up some mucous, feels like his chest is getting congested and having drainage States that last time he got like this he had to come in and get something Related Data Home Medications Medication Instructions Recorded Confirmed aspirin 81 mg tablet,delayed 81 mg PO ONCE heart. 09/07/17 10/12/22 release clopidogrel 75 mg tablet (Plavix) 75 mg PO ONCE heart. 09/07/17 10/12/22 furosemide 40 mg tablet (Lasix) 40 mg PO TID fluid-b/p 09/07/17 10/12/22 multivitamin (Daily Multi-Vitamin 1 tab PO DAILY Supplement 06/15/18 10/12/22 tablet) atorvastatin 80 mg tablet 80 mg PO DAILY High cholesterol 12/11/18 10/12/22 cetirizine 10 mg capsule (All Day 10 mg PO BID PRN 10/12/22 10/12/22 Allergy (cetir
[2022-11-22 10:05] VITALS: BP 141/85; PULSE 72; RESP 18; TEMP 36.9; O2SAT 100
== END 2022-11-22 10:07 | disposition home or self-care (01) ==
PROVIDERS: Emergency Provider Nurse Practitioner; PCP Nurse Practitioner Family
DX: J20.9 Acute bronchitis, unspecified (principal); J01.90 Acute sinusitis, unspecified
CPT/HCPCS: 99212; 99214; G0463

== ENCOUNTER 2022-12-02 16:46 | Emergency (ER) | payer BC, OTHER, SELFPAY ==
[2022-12-02 16:55] VITALS: BP 146/90; PULSE 68; RESP 18; TEMP 36.8; O2SAT 98; BMI 36.8
--- NOTE | 2022-12-02 17:16 | EXP.UTC ---
Discharge Plan Disposition Patient Disposition: Home, Self-Care Condition: Good Prescriptions Prescriptions: New cephalexin 500 mg capsule 500 mg PO QID 5 Days Qty: 20 0RF No Action multivitamin [Daily Multi-Vitamin] tablet 1 tab PO DAILY montelukast 10 mg tablet 10 mg PO DAILY potassium chloride 20 mEq tablet,ER particles/crystals 20 meq PO BID losartan 25 mg tablet 25 mg PO DAILY All Day Allergy (cetirizine) 10 mg capsule 10 mg PO BID PRN famotidine 20 mg tablet 20 mg PO BID clopidogrel [Plavix] 75 mg tablet 75 mg PO ONCE furosemide [Lasix] 40 mg tablet 40 mg PO TID aspirin 81 mg tablet,delayed release (DR/EC) 81 mg PO ONCE atorvastatin 80 MG tablet 80 mg PO DAILY doxycycline monohydrate 100 mg capsule 100 mg PO BID 10 Days Qty: 20 0RF prednisone 10 mg tablet 10 mg PO BID 5 Days Qty: 10 0RF benzonatate 100 mg capsule 100 mg PO TID PRN (Reason: cough) Qty: 30 0RF prednisone 10 mg tablet 10 mg PO BID 5 Days Qty: 10 0RF azithromycin [Zithromax Z-Reji] 250 mg tablet See Rx Instructions .ROUTE .COMPLEX 5 Days Qty: 6 0RF Rx Instructions: For 250 mg dose pack: take 500 mg today (day 1), then 250 mg for 4 days (days 2-5) benzonatate 100 mg capsule 100 mg PO TID PRN (Reason: cough) Qty: 30 0RF Referrals Follow up/Referrals: Armida Savage APRN [Primary Care Provider] - See instructions Activity Restrictions/Add. Instructions Additional Instructions/Restrictions: *Start antibiotic(s) immediately and be sure to take as ordered for the FULL length of time although you may be feeling better or start to see improvement in the next 24-48 hours *Monitor closely. Outlined redness so that you can monitor easier. Follow up immediately for new or worsening symptoms including but not limited to redness, swelling, streaking from site fever or chills. *Warm compress 15 minutes 3-4 times day *Never squeeze or pop these on your own. Seek immediate medical attention next time this occurs *Monitor Temp. Tylenol every 4 hours as needed and ibuprofen every 6 hours as needed (as long as your primary care doctor has told you that it is ok to take both. For fever, aches, pain. ER if no less that 101 despite Tylenol and ibuprofen ?Follow up with your family doctor/primary care physician in the next 48-72 hours if no improvement Clinical Impressions Clinical Impression: Cellulitis Instructions Patient Instructions: Cellulitis, Cephalexin Discharge ED Provider: Yvette Kern [facility] [place] HPI General Stated complaint: right leg pain, no accident Mode of Arrival: Ambulatory Source of Information: Patient Limitations: No Limitations Time Seen by Provider: 12/02/22 17:16 Description of Symptoms (Recalled from Triage Doc. by RN): PATIENT C/O 2 RED SPOTS TO RIGHT LEFT THAT ARE SORE TO TOUCH X 2 DAYS HEENT Symptoms (Recalled from RN notes): No Resp Symptoms (Recalled from RN notes): No Skin Symptoms (Recalled from RN notes): Yes MS Symptoms (Recalled from RN notes): No Functional Status (Recalled from RN notes): WNL History of Present Illness Provider Complaint: Patient states that he noticed a red area that is warm to touch on his right inner lower leg like states that he has had cellulitis before and this is how it started States that he also had a spot on his right outter lower leg but thinks that may be a bruise he hit his leg last week States that he wanted to get it checked before it got too bad Related Data Home Medications Medication Instructions Recorded Confirmed aspirin 81 mg tablet,delayed 81 mg PO ONCE heart. 09/07/17 10/12/22 release clopidogrel 75 mg tablet (Plavix) 75 mg PO ONCE heart. 09/07/17 10/12/22 furosemide 40 mg tablet (Lasix) 40 mg PO TID fluid-b/p 09/07/17 10/12/22 multivitamin (Daily Multi-Vitamin 1 tab PO DAILY Supplement 06/15/18 10/12/22 tablet) atorvastatin 80 mg tablet 80 mg PO DAILY High cholesterol
[2022-12-02 17:30] VITALS: BP 146/90; PULSE 68; RESP 18; TEMP 36.8; O2SAT 98
== END 2022-12-02 17:33 | disposition home or self-care (01) ==
PROVIDERS: Emergency Provider Nurse Practitioner; PCP Nurse Practitioner Family
DX: L03.115 Cellulitis of right lower limb (principal)
CPT/HCPCS: 99212; 99214; G0463

== ENCOUNTER 2023-07-11 09:24 | Emergency (ER) | payer BC, OTHER, SELFPAY ==
[2023-07-11 09:40] VITALS: BP 132/75; PULSE 71; RESP 18; TEMP 36.9; O2SAT 96; BMI 39.7
--- NOTE | 2023-07-11 09:51 | EXP.UTC ---
Discharge Plan Disposition Patient Disposition: Home, Self-Care Condition: Good Prescriptions Prescriptions: New promethazine-DM 6.25-15 mg/5 mL Syrup 5 ml PO Q6H PRN (Reason: Cough) Qty: 240 0RF azithromycin [Zithromax] 250 mg tablet 250 mg PO UD DOSE PK Qty: 6 0RF Rx Instructions: Take two (2) tablets today, then one (1) tablet days #2 thru #5 methylprednisolone 4 mg Tablets,Dose Pack 4 mg PO DIRECTED 6 Days Qty: 21 0RF Rx Instructions: Take 1 pack as directed for 6 days No Action multivitamin [Daily Multi-Vitamin] tablet 1 tab PO DAILY montelukast 10 mg tablet 10 mg PO DAILY potassium chloride 20 mEq tablet,ER particles/crystals 20 meq PO BID losartan 25 mg tablet 25 mg PO DAILY All Day Allergy (cetirizine) 10 mg capsule 10 mg PO BID PRN (Reason: allergies) famotidine 20 mg tablet 20 mg PO BID clopidogrel [Plavix] 75 mg tablet 75 mg PO ONCE furosemide [Lasix] 40 mg tablet 40 mg PO TID aspirin 81 mg tablet,delayed release (DR/EC) 81 mg PO ONCE atorvastatin 80 MG tablet 80 mg PO DAILY Referrals Follow up/Referrals: Provider,Referral, MD [Primary Care Provider] - See instructions Activity Restrictions/Add. Instructions Additional Instructions/Restrictions: Drink plenty of fluids. Take tylenol or ibuprofen for pain or fever. Take the medications as directed. Follow up with your regular doctor. GO TO THE ER FOR ANY WORSENING SYMPTOMS Don't start the oral steroids until tomorrow, since you had the shot here today. Clinical Impressions Clinical Impression: Sinusitis, Bronchitis Instructions Patient Instructions: Acute Bronchitis, DI for Acute Bronchitis Discharge ED Provider: Tesfaye Perea [facility] [place] HPI General Stated complaint: congestion and cough Time Seen by Provider: 07/11/23 09:51 History of Present Illness Provider Complaint: He states that for the past 1 week he has had had worsening sinus congestion and cough. Related Data Home Medications Medication Instructions Recorded Confirmed aspirin 81 mg tablet,delayed 81 mg PO ONCE heart. 09/07/17 07/11/23 release clopidogrel 75 mg tablet (Plavix) 75 mg PO ONCE heart. 09/07/17 07/11/23 furosemide 40 mg tablet (Lasix) 40 mg PO TID fluid-b/p 09/07/17 07/11/23 multivitamin (Daily Multi-Vitamin 1 tab PO DAILY Supplement 06/15/18 07/11/23 tablet) atorvastatin 80 mg tablet 80 mg PO DAILY High cholesterol 12/11/18 07/11/23 cetirizine 10 mg capsule (All Day 10 mg PO BID PRN allergies 10/12/22 07/11/23 Allergy (cetirizine)) famotidine 20 mg tablet 20 mg PO BID 10/12/22 07/11/23 losartan 25 mg tablet 25 mg PO DAILY 10/12/22 07/11/23 montelukast 10 mg tablet 10 mg PO DAILY 10/12/22 07/11/23 potassium chloride 20 mEq 20 meq PO BID 10/12/22 07/11/23 tablet,extended release(part/cryst) Previous Rx's Medication Instructions Recorded azithromycin 250 mg tablet 250 mg PO UD DOSE PK #6 tabs 07/11/23 (Zithromax) methylprednisolone 4 mg tablets in 4 mg PO DIRECTED 6 days #21 tabs 07/11/23 a dose pack promethazine-DM 6.25 mg-15 mg/5 mL 5 ml PO Q6H PRN Cough #240 mL 07/11/23 oral syrup Allergies Allergy/AdvReac Type Severity Reaction Status Date / Time penicillin G [PENICILLIN G] Allergy Unknown Verified 07/11/23 10:06 Penicillins Allergy Verified 07/11/23 10:06 [facility] Disclaimer: The information contained in this section may have been updated after the patient was seen, as this information can be updated by other users. Medical History History of heart attack Surgical History History of cholecystectomy Social History Smoking Status: Never smoker alcohol intake: never counseling provided: none substance use type: denies use current occupational status: employed Travel in the last 8 weeks: None household members: family housing: house current occupational exposures/hazards: Yes caffeine: No ROS Obtained: Yes All systems reviewed & no additional complaints except as documented Constitutional Constitutional: Reports poor appetite Eyes Eyes: Reports system reviewed and no additional complaints, except as documented ENT Ears, Nose, Mouth, and Throat: Reports as per HPI Cardiovascular Cardiovascular: Reports system reviewed and no additional complaints, except as documented and Denies chest pain Respiratory Respiratory: Denies shortness of breath, Reports chest congestion, Reports cough, Denies stridor and Denies wheezing Gastrointestinal Gastrointestingal: Reports system reviewed and no additional complaints, except as documented; Denies abdominal pain, diarrhea or vomiting Musculoskeletal Musculoskeletal: Reports system reviewed and no additional complaints, except as documented and Denies arthralgias Integumentary/Breasts Skin/Breast: Reports system reviewed and no additional complaints, except as documented and Denies rash Neurologic Neurologic: Denies paresthesias Allergic/Immunologic Allergic/Immunologic: Denies wheezing Physical Exam General General appearance: alert and in no apparent distress Eye Eye exam: Present normal appearance, PERRL and EOMI ENT ENT exam: Present mucous membranes moist and normal external ear exam Expanded ENT Exam External ear exam: Present normal external inspection TM/Canal exam: Bilateral TM: erythema and bulging Nose exam: Absent sinus tenderness Nasal speculum exam: Bilateral: normal Mouth exam: Present normal external inspection; Absent drooling Teeth exam: Present normal inspection Throat exam: Present tonsillar erythema and tonsillomegaly Neck Neck exam: Present normal inspection, full ROM and trachea midline; Absent tenderness, lymphadenopathy or thyromegaly Chest Chest inspection: Present normal inspection and symmetric chest wall rise; Absent tenderness or rash Respiratory Respiratory exam: Present normal lung sounds bilaterally; Absent respiratory distress, wheezes, stridor or accessory muscle use Cardiovascular Cardiovascular exam: Present regular rate, normal rhythm and normal heart sounds Abdominal Exam Abdominal exam: Present soft; Absent distention, tenderness, guarding, rebound or rigidity Extremities Exam Extremities exam: Present normal inspection, full ROM and normal capillary refill; Absent tenderness or calf tenderness Back Exam Back exam: Present normal inspection and full ROM; Absent tenderness Neurological Exam Neurological exam: Present alert and oriented X3 Psychiatric Psychiatric exam: Present normal affect and normal mood Skin Skin exam: Present warm, dry, intact and normal color Lymphatic Lymphatic Findings: no adenopathy Medical Decision Making Medical Records Medical records reviewed: No I reviewed the patient's medical records. Goran Inquiry Pt receiving controlled substance: No
[2023-07-11] MEDS: DEXAMETHASONE 4MG/ML 1ML VIAL 8 MG IM (10:14)
[2023-07-11 10:28] VITALS: BP 132/75; PULSE 71; RESP 18; TEMP 36.9; O2SAT 96
== END 2023-07-11 10:28 | disposition home or self-care (01) ==
PROVIDERS: Emergency Provider Nurse Practitioner Family
DX: J01.90 Acute sinusitis, unspecified (principal); J20.9 Acute bronchitis, unspecified; R05.9 Cough, unspecified; R09.81 Nasal congestion
CPT/HCPCS: 96372; 99212; 99214; G0463

== ENCOUNTER 2023-10-14 09:58 | Outpatient (CLI) | payer BC, OTHER, SELFPAY ==
--- NOTE | 2023-10-14 10:00 | XR_ITS ---
FINAL REPORT CLINICAL HISTORY: lower back pain fall 40 years ago, no new injuries FINDINGS: Sacrum/coccyx Three views were obtained. There is no acute fracture or dislocation. There are degenerative changes of the sacroiliac joints and in the lower lumbar spine. No soft tissue abnormality is identified. IMPRESSION: Degenerative changes without acute bony abnormality. Reviewed, Interpreted and Dictated by Bob Tabor III, MD Transcribed by Patricia Ramachandran Authenticated and [facility]
--- NOTE | 2023-10-14 10:00 | XR_ITS ---
FINAL REPORT CLINICAL HISTORY: Lower back pain fall 40 years ago, no new injuries FINDINGS: LUMBAR SPINE Three views demonstrate no acute fracture. There are moderate to severe degenerative changes with vacuum phenomenon at multiple levels. Mild rightward curvature is identified. There is mild anterolisthesis of L4 on 5. IMPRESSION: Multilevel degenerative changes as above. Reviewed, Interpreted and Dictated by Bob Tabor III, MD Transcribed by Patricia Ramachandran Authenticated and . [facility]
[2023-10-14 18:09] LABS: Basophils # 0.1 K/mm3 (0-0.2); Basophils % 1.9 % (0.1-2.0); Eosinophils # 0.3 K/mm3 (0.0-0.4); Eosinophils % 4.7 % (0.1-12.0); Hematocrit 47.2 % (42.0-52.0); Hemoglobin 15.3 g/dL (14.1-18.0); Lymphocytes # 2.1 K/mm3 (0.7-4.5); Lymphocytes % 33.5 % (10-50); Mean Corpuscular HGB Conc 32.3 g/dL (31.8-35.4); Mean Platelet Volume 9.6 fl (7.4-10.4); Monocytes # 0.5 K/mm3 (0.1-1.0); Monocytes % 7.3 % (1.7-9.3); Neutrophils # 3.3 K/mm3 (1.8-7.8); Neutrophils % 52.6 % (37.0-80.0); Platelet Count 375 K/mm3 (142-424); Red Blood Count 4.92 M/mm3 (4.60-6.20); Red Cell Distribution Width 13.5 % (11.5-17.5); White Blood Count 6.3 K/mm3 (4.8-10.8)
[2023-10-14 18:13] LABS: Alanine Aminotransferase 29 U/L (12-78); Albumin/Globulin Ratio 1.6 (1.1-1.8); Alkaline Phosphatase 113 U/L (38-126); Anion Gap 10.6 mEq/L (5-15); Aspartate Amino Transferase 33 U/L (17-59); Bilirubin,Total 0.8 mg/dl (0.2-1.3); Blood Urea Nitrogen 14 mg/dl (9-20); Calcium 9.5 mg/dl (8.4-10.2); Carbon Dioxide 30 mmol/L (22.0-30.0); Chloride 105 mmol/L (98-107); Chol/HDL Ratio 3.2 (1-3.5); Cholesterol 117 mg/dl (140-200); Estimated Glomerular Filt Rate 97 ml/min (>60); GFR (African American) 118 ML/MIN (>60); Globulin 2.5 g/dL (1.3-3.2); Glucose 99 mg/dl (74-100); HDL Cholesterol 37 mg/dl (40-60); Potassium 4.6 mmoL/L (3.5-5.1); Sodium 141 mmol/L (136-145); Total Protein,Serum 6.5 g/dl (6.3-8.2); Triglycerides 89 mg/dl (30-150); VLDL Cholesterol 18 mg/dL (0-40)
[2023-10-14 18:30] LABS: Free T4 (Free Thyroxine) 1.29 ng/dl (0.78-2.19)
[2023-10-14 18:39] LABS: Hemoglobin A1C 5.4 % (4.0-6.0)
[2023-10-14 18:44] LABS: Prostate Specific Ag Screen 1.5 ng/ml (0.0-4.0); Thyroid Stimulating Hormone 2.48 uIU/mL (0.465-4.68)
== END 2023-10-14 23:59 | disposition home or self-care (01) ==
LOC: LAB.DROPOF 09:58
PROVIDERS: PCP Internal Medicine; Visit Provider Internal Medicine
DX: M54.50 Low back pain, unspecified (principal); E66.9 Obesity, unspecified; Z68.39 Body mass index [BMI] 39.0-39.9, adult; Z13.1 Encounter for screening for diabetes mellitus; Z13.29 Encounter for screening for other suspected endocrine disorder; Z13.21 Encounter for screening for nutritional disorder; Z13.220 Encounter for screening for lipoid disorders; Z12.5 Encounter for screening for malignant neoplasm of prostate; Z79.899 Other long term (current) drug therapy
CPT/HCPCS: 72100; 72220; 80053; 80061; 82306; 83036; 84439; 84443; 85025; G0103

== ENCOUNTER 2023-10-20 11:06 | Emergency (ER) | payer BC, OTHER, SELFPAY ==
[2023-10-20 11:30] VITALS: BP 137/74; PULSE 63; RESP 18; TEMP 36.6; O2SAT 97; BMI 39.6
--- NOTE | 2023-10-20 11:52 | EXP.UTC ---
Discharge Plan Disposition Patient Disposition: Home, Self-Care Condition: Good Prescriptions Prescriptions: No Action multivitamin [Daily Multi-Vitamin] tablet 1 tab PO DAILY montelukast 10 mg tablet 10 mg PO DAILY potassium chloride 20 mEq tablet,ER particles/crystals 20 meq PO BID losartan 25 mg tablet 25 mg PO DAILY All Day Allergy (cetirizine) 10 mg capsule 10 mg PO BID PRN (Reason: allergies) famotidine 20 mg tablet 20 mg PO BID clopidogrel [Plavix] 75 mg tablet 75 mg PO ONCE furosemide [Lasix] 40 mg tablet 40 mg PO TID aspirin 81 mg tablet,delayed release (DR/EC) 81 mg PO ONCE atorvastatin 80 MG tablet 80 mg PO DAILY Referrals Follow up/Referrals: Alirio Gan DO [Primary Care Provider] - See instructions Activity Restrictions/Add. Instructions Additional Instructions/Restrictions: Clean area well with antibacterial soap and water Watch area for worsening of redness or Bulls eye rash if seen follow up with your Family Doctor immediately Follow up with your Family Doctor if needed Straight to ER if any life threatening symptoms Clinical Impressions Clinical Impression: Tick bite Instructions Patient Instructions: How to Remove a Tick, Protect Yourself from Tickborne Illnesses Discharge ED Provider: Yvette Kern [facility] [place] HPI General Stated complaint: tick bite on upper left leg Mode of Arrival: Ambulatory Source of Information: Patient Limitations: No Limitations Time Seen by Provider: 10/20/23 11:52 Description of Symptoms (Recalled from Triage Doc. by RN): PATIENT C/O TICK BITE TO LEFT OUTER THIGH THAT HE NOTICED LAST NIGHT. HE STATES HE REMOVED THE TICK BUT IS UNSURE IF ALL OF IT CAME OUT. REDNESS NOTED TO SITE HEENT Symptoms (Recalled from RN notes): No Resp Symptoms (Recalled from RN notes): No Skin Symptoms (Recalled from RN notes): Yes MS Symptoms (Recalled from RN notes): No Functional Status (Recalled from RN notes): WNL History of Present Illness Provider Complaint: Patient states that he had a tick on his left upper leg that he removed last night and having some redness around the bite site and was worried with tick borne illness Related Data Home Medications Medication Instructions Recorded Confirmed aspirin 81 mg tablet,delayed 81 mg PO ONCE heart. 09/07/17 10/20/23 release clopidogrel 75 mg tablet (Plavix) 75 mg PO ONCE heart. 09/07/17 10/20/23 furosemide 40 mg tablet (Lasix) 40 mg PO TID fluid-b/p 09/07/17 10/20/23 multivitamin (Daily Multi-Vitamin 1 tab PO DAILY Supplement 06/15/18 10/20/23 tablet) atorvastatin 80 mg tablet 80 mg PO DAILY High cholesterol 12/11/18 10/20/23 cetirizine 10 mg capsule (All Day 10 mg PO BID PRN allergies 10/12/22 10/20/23 Allergy (cetirizine)) famotidine 20 mg tablet 20 mg PO BID 10/12/22 10/20/23 losartan 25 mg tablet 25 mg PO DAILY 10/12/22 10/20/23 montelukast 10 mg tablet 10 mg PO DAILY 10/12/22 10/20/23 potassium chloride 20 mEq 20 meq PO BID 10/12/22 10/20/23 tablet,extended release(part/cryst) Allergies Allergy/AdvReac Type Severity Reaction Status Date / Time penicillin G [PENICILLIN G] Allergy Unknown Verified 10/14/23 08:41 Penicillins Allergy Verified 10/14/23 08:41 Worker's Comp Is this a Worker's Comp case?: No [facility] Disclaimer: The information contained in this section may have been updated after the patient was seen, as this information can be updated by other users. Medical History (Updated 10/20/23 @ 12:03 by Yvette Kern APRN) History of heart attack Surgical History (Updated 10/20/23 @ 11:46 by Maryjane Jenkins RN) History of hand surgery History of heart artery stent Hx of cardiac cath History of cholecystectomy Social History Smoking Status: Never smoker alcohol intake: never counseling provided: none substance use type: denies use current occupational status: employed Travel in the last 8 weeks: None household members: family housing: house current occupational exposures/hazards: Yes caffeine: No ROS Obtained: Yes All systems reviewed & no additional complaints except as documented and Yes Systems reviewed as appropriate & no additional complaints except as documented Constitutional Constitutional: Reports system reviewed and no additional complaints, except as documented and Reports as per HPI ENT Ears, Nose, Mouth, and Throat: Reports system reviewed and no additional complaints, except as documented and Reports as per HPI Cardiovascular Cardiovascular: Reports system reviewed and no additional complaints, except as documented and Reports as per HPI Respiratory Respiratory: Reports system reviewed and no additional complaints, except as documented and Reports as per HPI Gastrointestinal Gastrointestingal: Reports system reviewed and no additional complaints, except as documented and as per HPI Integumentary/Breasts Skin/Breast: Reports system reviewed and no additional complaints, except as documented, Reports as per HPI and Reports other (tick bite to left upper leg) Physical Exam General General appearance: alert and in no apparent distress Respiratory Respiratory exam: Present normal lung sounds bilaterally; Absent respiratory distress or wheezes Cardiovascular Cardiovascular exam: Present regular rate, normal rhythm and normal heart sounds Expanded Lower Extremity Exam Left: Leg image: 1. red raised hard area noted where tick has been removed Neurological Exam Neurological exam: Present alert, oriented X3 and normal gait Medical Decision Making Goran Inquiry Pt receiving controlled substance: No Goran was queried for this patient: No Vital Signs: 10/20/23 11:30 Temperature 97.8 F Temperature Source Oral Pulse Rate [Left Brachial] 63 Respiratory Rate 18 Blood Pressure [Left Arm] 137/74 Blood Pressure Mean [Left Arm] 95 Blood Pressure Source [Left Arm] Automatic Cuff Blood Pressure Position [Left Arm] Sitting 02 Sat by Pulse Oximetry 97 Oxygen Delivery Method Room Air Medical Decision Narrative: Medication discussed with pharmacy where area red and tick removed and unsure how long it had been there will treat prophylactically with Doxycycline 200mg x 1 dose
[2023-10-20 12:06] VITALS: BP 137/74; PULSE 63; RESP 18; TEMP 36.6; O2SAT 97
[2023-10-20] MEDS: DOXYCYCLINE HYCL 100 MG TABLET 200 MG PO (12:10)
== END 2023-10-20 12:12 | disposition home or self-care (01) ==
PROVIDERS: Emergency Provider Nurse Practitioner; PCP Internal Medicine
DX: S80.862A Insect bite (nonvenomous), left lower leg, initial encounter (principal); W57.XXXA Bitten or stung by nonvenomous insect and other nonvenomous arthropods, initial encounter
CPT/HCPCS: 99212; 99214; G0463

== ENCOUNTER 2023-11-04 08:39 | Outpatient (CLI) | payer BC, OTHER, SELFPAY ==
--- NOTE | 2023-11-04 08:39 | MR_ITS ---
FINAL REPORT TECHNIQUE: Multiplanar MR without gadolinium enhancement CLINICAL HISTORY: Lumbar Pain, DDD, Vacuum phenomenon COMPARISON: None FINDINGS: Sagittal images show normal vertebral height. There is grade 1 spondylolisthesis of L4 on L5, likely secondary to facet disease. There is a large reactive Schmorl's node in the L3 superior endplate. Marrow signal pattern is otherwise unremarkable. L1-2: No evidence of central canal stenosis or neural foraminal narrowing is present. L2-3: A small annular bulge is present with facet osteoarthropathy and mild bilateral neural foraminal narrowing. L3-4: A small annular bulge is present with facet osteoarthropathy, mild central canal stenosis, and moderate bilateral neural foraminal narrowing. L4-5: A small annular bulge is present with severe right and moderate left facet osteoarthropathy. There is moderate central canal stenosis, severe right lateral recess narrowing, and right neural foraminal narrowing. L5-S1: A small annular bulge is present with facet osteoarthropathy. IMPRESSION: Multilevel lumbar degenerative changes present, most severe at the L4-5 level. Reviewed, Interpreted and Dictated by Sean Pedroza MD Transcribed by Arleth Moon Authenticated and [facility]
== END 2023-11-04 23:59 | disposition home or self-care (01) ==
LOC: RAD 08:39
PROVIDERS: PCP Internal Medicine; Visit Provider Internal Medicine
DX: M54.50 Low back pain, unspecified (principal)
CPT/HCPCS: 72148; 76376

== ENCOUNTER 2023-11-04 10:13 | Emergency (ER) | payer BC, OTHER, SELFPAY ==
[2023-11-04 11:10] VITALS: BP 137/74; PULSE 67; RESP 22; TEMP 36.6; O2SAT 99; BMI 39.0
--- NOTE | 2023-11-04 11:32 | ED_ITS ---
Discharge Plan Disposition Patient Disposition: Home, Self-Care Condition: Good Prescriptions Prescriptions: New doxycycline hyclate 100 mg capsule 100 mg PO BID Qty: 20 0RF No Action multivitamin [Daily Multi-Vitamin] tablet 1 tab PO DAILY montelukast 10 mg tablet 10 mg PO DAILY potassium chloride 20 mEq tablet,ER particles/crystals 20 meq PO BID losartan 25 mg tablet 25 mg PO DAILY All Day Allergy (cetirizine) 10 mg capsule 10 mg PO BID PRN (Reason: allergies) famotidine 20 mg tablet 20 mg PO BID clopidogrel [Plavix] 75 mg tablet 75 mg PO ONCE furosemide [Lasix] 40 mg tablet 40 mg PO TID aspirin 81 mg tablet,delayed release (DR/EC) 81 mg PO ONCE atorvastatin 80 MG tablet 80 mg PO DAILY Referrals Follow up/Referrals: Alirio Gan DO [Primary Care Provider] - See instructions Activity Restrictions/Add. Instructions Additional Instructions/Restrictions: *Start antibiotic(s) immediately and be sure to take as ordered for the FULL length of time although you may be feeling better or start to see improvement in the next 24-48 hours *Monitor closely. Outlined redness so that you can monitor easier. Follow up immediately for new or worsening symptoms including but not limited to redness, swelling, streaking from site fever or chills. *Warm compress 15 minutes 3-4 times day *Never squeeze or pop these on your own. Seek immediate medical attention next time this occurs *Monitor Temp. Tylenol every 4 hours as needed and ibuprofen every 6 hours as needed (as long as your primary care doctor has told you that it is ok to take both. For fever, aches, pain. ER if no less that 101 despite Tylenol and ibuprofen ?Follow up with your family doctor/primary care physician in the next 48-72 hours if no improvement Clinical Impressions Clinical Impression: Cellulitis Instructions Patient Instructions: Cellulitis, Doxycycline Discharge ED Provider: Yvette Kern [facility] [place] HPI General Stated complaint: possible cellulitis R leg Mode of Arrival: Ambulatory Source of Information: Patient Limitations: No Limitations Time Seen by Provider: 11/04/23 11:38 Description of Symptoms (Recalled from Triage Doc. by RN): PATIENT C/O POSSIBLE CELLULITIS TO RIGHT LOWER LEG THAT STARTED TODAY HEENT Symptoms (Recalled from RN notes): No Resp Symptoms (Recalled from RN notes): No Skin Symptoms (Recalled from RN notes): Yes MS Symptoms (Recalled from RN notes): No Functional Status (Recalled from RN notes): WNL History of Present Illness Provider Complaint: Patient states that he has a hx of cellulitis on his right lower leg and this morning he woke up and again he had some redness and warmth to his right lower leg so he came in to get something before it got worse Related Data Home Medications Medication Instructions Recorded Confirmed aspirin 81 mg tablet,delayed 81 mg PO ONCE heart. 09/07/17 10/20/23 release clopidogrel 75 mg tablet (Plavix) 75 mg PO ONCE heart. 09/07/17 10/20/23 furosemide 40 mg tablet (Lasix) 40 mg PO TID fluid-b/p 09/07/17 10/20/23 multivitamin (Daily Multi-Vitamin 1 tab PO DAILY Supplement 06/15/18 10/20/23 tablet) atorvastatin 80 mg tablet 80 mg PO DAILY High cholesterol 12/11/18 10/20/23 cetirizine 10 mg capsule (All Day 10 mg PO BID PRN allergies 10/12/22 10/20/23 Allergy (cetirizine)) famotidine 20 mg tablet 20 mg PO BID 10/12/22 10/20/23 losartan 25 mg tablet 25 mg PO DAILY 10/12/22 10/20/23 montelukast 10 mg tablet 10 mg PO DAILY 10/12/22 10/20/23 potassium chloride 20 mEq 20 meq PO BID 10/12/22 10/20/23 tablet,extended release(part/cryst) Previous Rx's Medication Instructions Recorded doxycycline hyclate 100 mg capsule 100 mg PO BID #20 caps 11/04/23 Allergies Allergy/AdvReac Type Severity Reaction Status Date / Time penicillin G [PENICILLIN G] Allergy Unknown Verified 10/14/23 08:41 Penicillins Allergy Verified 10/14/23 08:41 Worker's Comp Is this a Worker's Comp case?: No [facility] Disclaimer: The information contained in this section may have been updated after the patient was seen, as this information can be updated by other users. Medical History (Updated 11/04/23 @ 11:45 by Yvette Kern APRN) History of heart attack Surgical History (Updated 10/20/23 @ 11:46 by Maryjane Jenkins RN) History of hand surgery History of heart artery stent Hx of cardiac cath History of cholecystectomy Social History Smoking Status: Never smoker alcohol intake: never counseling provided: none substance use type: denies use current occupational status: employed Travel in the last 8 weeks: None household members: family housing: house current occupational exposures/hazards: Yes caffeine: No ROS Obtained: Yes All systems reviewed & no additional complaints except as documented and Yes Systems reviewed as appropriate & no additional complaints except as documented Constitutional Constitutional: Reports system reviewed and no additional complaints, except as documented and Reports as per HPI Cardiovascular Cardiovascular: Reports system reviewed and no additional complaints, except as documented and Reports as per HPI Respiratory Respiratory: Reports system reviewed and no additional complaints, except as documented and Reports as per HPI Gastrointestinal Gastrointestingal: Reports system reviewed and no additional complaints, except as documented and as per HPI Integumentary/Breasts Skin/Breast: Reports system reviewed and no additional complaints, except as documented, Reports as per HPI and Reports other (redness and warmth right lower leg) Physical Exam General General appearance: alert and in no apparent distress ENT ENT exam: Present mucous membranes moist Respiratory Respiratory exam: Present normal lung sounds bilaterally; Absent respiratory distress or wheezes Cardiovascular Cardiovascular exam: Present regular rate, normal rhythm and normal heart sounds Neurological Exam Neurological exam: Present alert, oriented X3 and normal gait Skin Skin exam: Present erythema (redness and warmth noted right lower leg, no open wounds no drainage) Medical Decision Making Goran Inquiry Pt receiving controlled substance: No Vital Signs: 11/04/23 11:10 Temperature 97.9 F Temperature Source Oral Pulse Rate [Left Brachial] 67 Respiratory Rate 22 Blood Pressure [Left Arm] 137/74 Blood Pressure Mean [Left Arm] 95 Blood Pressure Source [Left Arm] Automatic Cuff Blood Pressure Position [Left Arm] Sitting 02 Sat by Pulse Oximetry 99 Oxygen Delivery Method Room Air Medical Decision Narrative: Medication discussed with pharmacy
[2023-11-04 11:47] VITALS: BP 137/74; PULSE 67; RESP 22; TEMP 36.6; O2SAT 99
== END 2023-11-04 11:49 | disposition home or self-care (01) ==
PROVIDERS: Emergency Provider Nurse Practitioner; PCP Internal Medicine
DX: L03.115 Cellulitis of right lower limb (principal)
CPT/HCPCS: 99212; 99214; G0463

== ENCOUNTER 2024-01-19 09:00 | Outpatient (RCR) | payer BC, OTHER, SELFPAY ==
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
--- NOTE | 2023-11-25 11:57 | HMH.RHREAS ---
Rehab Reassessment Rehab OP Re-assessment Start: 10/26/23 09:57 Freq: Status: Active Protocol: Document 11/25/23 10:02 MIROSLAVA (Rec: 11/25/23 10:12 MIROSLAVA [id number]) E-signed By Cathie Edwards, PT Oswestry Index Section 1 Pain Intensity The pain is moderate and does not vary much Section 2 Personal Care (Washing,Dresing) my way of washing or dressing even though it causes some pain Section 3 Lifting lifting heavy weights off the floor, but I can manage if they are Section 4 Walking I have some pain when walking but it does not increase with distance Section 5 Sitting I can sit in any chair for as long as I like Section 6 Standing I cannot stand more than 1 hour without increasing pain Section 7 Sleeping I get pain in bed, but it does not prevent me from sleeping well Section 8 Social Life My social life is normal but increases the degree of pain Section 9 Traveling I get some pain when traveling , but none of my usual forms of travel m Section 10 Changing Degreee of Pain My pain seems to be getting better, but improvement is slow Score and Risk Level Oswestry Sc 15 Oswestry Risk Level Moderate Disability Rehab Re-assessment Subjective Subjective Pt reports he feels 40% better since IE. Pt reports he feels that physical therapy has improved his back pain but still has reports of LBP with transfers, transitional movements, and when performing work/daily tasks. Pain upon arrival 2/10 Pain at worst in past 48 hours : 5/10 Objective Objective Notes BLE MMT: - hip flexion 5/5 - hip ABD 5/5 - hip ADD 5/5 Lumbar AROM: - Flexion 70, tight - Extension 25 deg/WNL - Side bending R: WNL pain- free - Side bending L: WNL pain- free MAGDA: Moderate disability Assessment Progress Assessment Progressing as Expected Assessment Notes This is a reassessment for Jerel Pereira who presents to PT for c /o chronic LBP. Since IE, pt has been seen for 8 visits that have consisted of modalities prn, education, and therapeutic exercises focusing on ROM and strength. Pt with good attendance to scheduled PT visits and reports adherence to HEP. Since IE, pt with improvements in lumbar functional ROM, strength, and decreased pain reports with walking. Pt still presents with impaired lumbar flexion ROM (tight HS) and subjective complaints of pain. Pt would continue to benefit from skilled outpatient physical therapy to address remaining deficits. Patient goals met / STGs MET LTG: In progress (Strength and MAGDA LTG MET) Plan Plan Continue POC 2x weekly for 3-4 more weeks Frequency of Therapy 2x Duration of therapy 4 weeks Time and Billing Re-Eval Time 10 Re-Eval Billing Units 1 PHYSICIAN CERTIFICATION: I certify the specified therapy services for Jerel Pereira JR are required, authorized, and reviewed every 30 days.
== END 2024-01-19 10:00 | disposition home or self-care (01) ==
LOC: PT 09:00
PROVIDERS: Visit Provider Internal Medicine
DX: M54.50 Low back pain, unspecified (principal)
CPT/HCPCS: 97010; 97014; 97110; 97163; 97164; 97530; 97535; G0283

== ENCOUNTER 2024-03-01 10:27 | Day surgery (SDC) | payer BC, OTHER, SELFPAY ==
[2024-02-27 17:05] VITALS: BMI 36.9
[2024-03-01 10:41] VITALS: BP 146/72; PULSE 63; RESP 18; TEMP 36.4; O2SAT 94
--- NOTE | 2024-03-01 11:37 | EXP.ANES.CKL ---
[facility] Disclaimer: The information contained in this section may have been updated after the patient was seen, as this information can be updated by other users. Medical History History of gastroesophageal reflux (GERD) History of hyperlipidemia History of hypertension DARWIN (obstructive sleep apnea) History of heart attack Surgical History History of hand surgery History of heart artery stent Hx of cardiac cath History of cholecystectomy Family History Other No significant family history Social History (Updated 03/01/24 @ 10:39 by Nehal Allen RN) Smoking Status: Never smoker alcohol intake: never counseling provided: none substance use type: denies use current occupational status: employed Travel in the last 8 weeks: None household members: family housing: house current occupational exposures/hazards: Yes caffeine: No [facility] Anesthesia Checklist Patient Identification Patient Identification: Arm Band, Family and Verbal (Name & ) Structural Data Admitted From: Home Planned Operative Procedure/s: colonosccopy Consent for Planned Operative Procedure(s) Verified: Yes Verified Documents: Surgical Consent and History and Physical NPO Status Verified Time NPO: 05:45 Additional verifications Patient : No Anesthesia Reactions: No Hx Blood Transfusions: No Blood Transfusion Reaction: No Cardiovascular Assessment Heart Sounds: S1 & S2 Pulse Rhythm: Irregular Peripheral Edema: No Airway Assessment Mallampati Score:: Class IV (pt. can barely open mouth d/t dental work.) C-Spine Mobility Assessed: Yes (FROM demonstrated) TMJ Mobility Assessed: Yes Dentition: Good Dentition (nothing loose per pt.) Neurological Assessment Level of Consciousness: Awake, Alert, Appropriate and Follows Commands Hx Seizures: No Numbness or tingling in extremities: No Anesthesia Plan Anesthesia Risk discussed: Yes Anesthesia Plan: Verified ASA Class: III Anesthesia Type: MAC
[2024-03-01 11:41] VITALS: O2SAT 100
--- NOTE | 2024-03-01 12:00 | HMH.SCOPE ---
Procedure: Date: 03/01/24 Patient Date of :: 1960 Procedure Performed:: Screening colonoscopy Indications:: Colon cancer screening Performing Provider:: Elizabeth Faust MD Referring Provider:: Alirio Gan DO Sedation:: Propofol Procedure:: After placing the patient in the left lateral decubitus position, the colonoscopy was gently inserted into the rectum and under direct visualization advanced to the cecum which was identified by transillumination in the right lower quadrant, identification of the ileocecal valve, appendiceal orifice, and cecal strap. Color, texture, mucosa, and anatomy of the colon were carefully examined with the scope. Findings:: Anal canal: normal Rectum: normal Sigmoid colon: normal without polyps or inflammatory changes Descending colon: normal without polyps or inflammatory changes Splenic flexure: normal Transverse colon: normal without polyps or inflammatory changes, loopy Hepatic flexure: normal Ascending colon: normal without polyps or inflammatory changes Cecum: normal Terminal ileum: not visualized Impression: Normal colonoscopy Recommendations:: Follow up examination in about TEN years or so, sooner if clinically indicated. Complications:: None Estimated blood obtained (mL): 0 Colonoscopy Component Colonoscopy Component Was a colonoscopy performed during today's procedure?: Yes Recommended follow up colonoscopy of at least 10 years?: Yes
[2024-03-01 12:02] VITALS: BP 123/65; PULSE 68; RESP 16; TEMP 36.4; O2SAT 97
[2024-03-01 12:12] VITALS: BP 112/76; PULSE 59; RESP 18; O2SAT 97
[2024-03-01 12:21] VITALS: BP 126/67; PULSE 59; RESP 18; O2SAT 98
[2024-03-01 12:31] VITALS: BP 122/68; PULSE 58; RESP 18; O2SAT 97
== END 2024-03-01 12:32 | disposition home or self-care (01) ==
PROVIDERS: PCP Internal Medicine; Visit Provider Internal Medicine Gastroenterology
PROC: 0DJD8ZZ Inspection of Lower Intestinal Tract, Via Natural or Artificial Opening Endoscopic (ICD-10-PCS; CPT 45378; principal; 2024-03-01 11:30)
DX: Z12.11 Encounter for screening for malignant neoplasm of colon (principal)
CPT/HCPCS: 45378; J7120

== ENCOUNTER 2024-07-26 10:05 | Emergency (ER) | payer MEDICARE, OTHER, SELFPAY ==
[2024-07-26 10:20] VITALS: BP 141/77; PULSE 68; RESP 18; TEMP 36.7; O2SAT 98; BMI 39.0
--- NOTE | 2024-07-26 10:26 | EXP.UTC ---
Discharge Plan Disposition Patient Disposition: Home, Self-Care Condition: Good Prescriptions Prescriptions: New benzonatate 100 mg capsule 100 mg PO TIDP PRN (Reason: Cough) Qty: 30 0RF methylprednisolone 4 mg Tablets,Dose Pack 4 mg PO DIRECTED 6 Days Qty: 21 0RF Rx Instructions: Take 1 pack as directed for 6 days azithromycin [Zithromax] 250 mg tablet 250 mg PO UD DOSE PK Qty: 6 0RF Rx Instructions: Take two (2) tablets today, then one (1) tablet days #2 thru #5 promethazine-DM 6.25-15 mg/5 mL Syrup 5 ml PO Q6H PRN (Reason: Cough) Qty: 240 0RF No Action multivitamin [Daily Multi-Vitamin] tablet 1 tab PO DAILY montelukast 10 mg tablet 10 mg PO DAILY potassium chloride 20 mEq tablet,ER particles/crystals 20 meq PO BID losartan 25 mg tablet 25 mg PO DAILY All Day Allergy (cetirizine) 10 mg capsule 10 mg PO BID PRN (Reason: allergies) famotidine 20 mg tablet 20 mg PO BID clopidogrel [Plavix] 75 mg tablet 75 mg PO ONCE furosemide [Lasix] 40 mg tablet 40 mg PO TID aspirin 81 mg tablet,delayed release (DR/EC) 81 mg PO ONCE atorvastatin 80 MG tablet 80 mg PO DAILY Referrals Follow up/Referrals: Alirio Gan DO [Primary Care Provider] - See instructions Activity Restrictions/Add. Instructions Additional Instructions/Restrictions: Drink plenty of fluids. Take tylenol or ibuprofen for pain or fever. Take the medications as directed. Follow up with your regular doctor. GO TO THE ER FOR ANY WORSENING SYMPTOMS Don't start the oral steroids (medrol dose pack) until tomorrow since you had the shot here The cough medication (promethazine dm) will make you drowsy, so don't drive or operate heavy machinery after taking it. Clinical Impressions Clinical Impression: Sinusitis Instructions Patient Instructions: Sinusitis, DI for Sinusitis, Dexamethasone Injection Print Language Print Language: Turkmen Discharge ED Provider: Tesfaye Perea [facility] HPI General Stated complaint: sneezing, nasal congestion/running, Time Seen by Provider: 07/26/24 10:26 History of Present Illness Provider Complaint: He states that for the past 5 days he has had worsening sinus congestion, ear pressure, post nasal drainage, and a cough. Related Data Home Medications ?Medication ?Instructions ?Recorded ?Confirmed aspirin 81 mg tablet,delayed 81 mg PO ONCE heart. 09/07/17 07/26/24 release clopidogrel 75 mg tablet (Plavix) 75 mg PO ONCE heart. 09/07/17 07/26/24 furosemide 40 mg tablet (Lasix) 40 mg PO TID fluid-b/p 09/07/17 07/26/24 multivitamin (Daily Multi-Vitamin 1 tab PO DAILY Supplement 06/15/18 07/26/24 tablet) atorvastatin 80 mg tablet 80 mg PO DAILY High cholesterol 12/11/18 07/26/24 cetirizine 10 mg capsule (All Day 10 mg PO BID PRN allergies 10/12/22 07/26/24 Allergy (cetirizine)) famotidine 20 mg tablet 20 mg PO BID 10/12/22 07/26/24 losartan 25 mg tablet 25 mg PO DAILY 10/12/22 07/26/24 montelukast 10 mg tablet 10 mg PO DAILY 10/12/22 07/26/24 potassium chloride 20 mEq 20 meq PO BID 10/12/22 07/26/24 tablet,extended release(part/cryst) Previous Rx's ?Medication ?Instructions ?Recorded azithromycin 250 mg tablet 250 mg PO UD DOSE PK #6 tabs 07/26/24 (Zithromax) benzonatate 100 mg capsule 100 mg PO TIDP PRN Cough #30 caps 07/26/24 methylprednisolone 4 mg tablets in 4 mg PO DIRECTED 6 days #21 tabs 07/26/24 a dose pack promethazine-DM 6.25 mg-15 mg/5 mL 5 ml PO Q6H PRN Cough #240 mL 07/26/24 oral syrup Allergies Allergy/AdvReac Type Severity Reaction Status Date / Time Penicillins Allergy Rash Verified 07/26/24 10:28 [facility] Disclaimer: The information contained in this section may have been updated after the patient was seen, as this information can be updated by other users. Medical History (Updated 07/26/24 @ 10:59 by Tesfaye Perea APRN) History of gastroesophageal reflux (GERD) History of hyperlipidemia History of hypertension DARWIN (obstructive sleep apnea) History of heart attack Surgical History (Updated 03/01/24 @ 12:45 by Yue Leon APRN) History of colonoscopy History of hand surgery History of heart artery stent Hx of cardiac cath History of cholecystectomy Family History Other No significant family history Social History (Updated 03/01/24 @ 10:39 by Nehal Allen RN) Smoking Status: Never smoker alcohol intake: never counseling provided: none substance use type: denies use current occupational status: employed Travel in the last 8 weeks: None household members: family housing: house current occupational exposures/hazards: Yes caffeine: No Have you lived/traveled outside [place] in past 30 days?: No Contact w/someone who lives/traveled outside [place] past 30 days?: No Exposure to someone with infectious disease in past 14 days?: No Do you have a fever (greater than 100.4 F or 38 C)?: No Have you tested positive for COVID-19: No Exposed to someone with COVID-19 in past 14 days?: No Do you have a sore throat?: No Do you have a cough?: No Do you have any weakness?: No Do you have any diarrhea?: No Are you experiencing any unusual bleeding?: No Do you have any muscle aches/pain?: No Do you have any abdominal pain?: No Are you experiencing loss of taste or smell?: No ROS Obtained: Yes All systems reviewed & no additional complaints except as documented Constitutional Constitutional: Reports poor appetite Eyes Eyes: Reports system reviewed and no additional complaints, except as documented ENT Ears, Nose, Mouth, and Throat: Reports as per HPI Cardiovascular Cardiovascular: Reports system reviewed and no additional complaints, except as documented and Denies chest pain Respiratory Respiratory: Denies shortness of breath, Denies chest congestion, Reports cough, Denies stridor and Denies wheezing Gastrointestinal Gastrointestingal: Reports system reviewed and no additional complaints, except as documented; Denies abdominal pain, diarrhea or vomiting Musculoskeletal Musculoskeletal: Reports system reviewed and no additional complaints, except as documented and Denies arthralgias Integumentary/Breasts Skin/Breast: Reports system reviewed and no additional complaints, except as documented and Denies rash Neurologic Neurologic: Denies paresthesias Allergic/Immunologic Allergic/Immunologic: Denies wheezing Physical Exam General General appearance: alert and in no apparent distress Eye Eye exam: Present normal appearance, PERRL and EOMI ENT ENT exam: Present mucous membranes moist and normal external ear exam Expanded ENT Exam External ear exam: Present normal external inspection TM/Canal exam: Bilateral TM: erythema and bulging Nose exam: Absent sinus tenderness Nasal speculum exam: Bilateral: normal Mouth exam: Present normal external inspection; Absent drooling Teeth exam: Present normal inspection Throat exam: Present tonsillar erythema and tonsillomegaly Neck Neck exam: Present normal inspection, full ROM and trachea midline; Absent tenderness, lymphadenopathy or thyromegaly Chest Chest inspection: Present normal inspection and symmetric chest wall rise; Absent tenderness or rash Respiratory Respiratory exam: Present normal lung sounds bilaterally; Absent respiratory distress, wheezes, stridor or accessory muscle use Cardiovascular Cardiovascular exam: Present regular rate, normal rhythm and normal heart sounds Abdominal Exam Abdominal exam: Present soft; Absent distention, tenderness, guarding, rebound or rigidity Extremities Exam Extremities exam: Present normal inspection, full ROM and normal capillary refill; Absent tenderness or calf tenderness Back Exam Back exam: Present normal inspection and full ROM; Absent tenderness Neurological Exam Neurological exam: Present alert and oriented X3 Psychiatric Psychiatric exam: Present normal affect and normal mood Skin Skin exam: Present warm, dry, intact and normal color Lymphatic Lymphatic Findings: no adenopathy Medical Decision Making Medical Records Medical records reviewed: No I reviewed the patient's medical records. Screening: Per USPSTF and CDC recommendations, given the prevalence of disease in our region, it is our hospital?s policy to screen for HIV and viral Hepatitis for all patients aged 18 and over and those with ongoing risk factors. Goran Inquiry Pt receiving controlled substance: No
[2024-07-26] MEDS: DEXAMETHASONE 4MG/ML 1ML VIAL 8 MG IM (10:45)
[2024-07-26 10:59] VITALS: BP 141/77; PULSE 68; RESP 18; TEMP 36.7; O2SAT 98
== END 2024-07-26 11:01 | disposition home or self-care (01) ==
PROVIDERS: Emergency Provider Nurse Practitioner Family; PCP Internal Medicine
DX: J01.90 Acute sinusitis, unspecified (principal)
CPT/HCPCS: 96372; 99213; G0381; J1100

== ENCOUNTER 2024-08-10 11:52 | Outpatient (CLI) | payer MEDICARE, OTHER, SELFPAY ==
[2024-08-10 12:40] LABS: Alanine Aminotransferase 36 U/L (12-78); Albumin Level 4.1 g/dl (3.5-5.0); Albumin/Globulin Ratio 1.9 (1.1-1.8); Alkaline Phosphatase 110 U/L (38-126); Anion Gap 14.1 mEq/L (5-15); Aspartate Amino Transferase 31 U/L (17-59); Bilirubin,Total 0.8 mg/dl (0.2-1.3); Blood Urea Nitrogen 11 mg/dl (9-20); Calcium 9.5 mg/dl (8.4-10.2); Carbon Dioxide 30 mmol/L (22.0-30.0); Chloride 102 mmol/L (98-107); Chol/HDL Ratio 2.7 (1-3.5); Cholesterol 125 mg/dl (140-200); Estimated Glomerular Filt Rate 97 ml/min (>60); GFR (African American) 117 ML/MIN (>60); Globulin 2.2 g/dL (1.3-3.2); Glucose 95 mg/dl (74-100); HDL Cholesterol 46 mg/dl (40-60); Potassium 4.1 mmoL/L (3.5-5.1); Sodium 142 mmol/L (136-145); Total Protein,Serum 6.3 g/dl (6.3-8.2); Triglycerides 90 mg/dl (30-150); VLDL Cholesterol 18 mg/dL (0-40)
[2024-08-10 12:51] LABS: Direct LDL Cholesterol 55.76 mg/dL (100-129)
[2024-08-10 13:19] LABS: Hemoglobin A1C 5.5 % (4.0-6.0)
== END 2024-08-10 23:59 | disposition home or self-care (01) ==
LOC: LAB 11:54
PROVIDERS: PCP Internal Medicine; Visit Provider Internal Medicine
DX: Z00.00 Encounter for general adult medical examination without abnormal findings (principal); I25.10 Atherosclerotic heart disease of native coronary artery without angina pectoris; I10 Essential (primary) hypertension; E78.5 Hyperlipidemia, unspecified; E66.01 Morbid (severe) obesity due to excess calories; Z68.39 Body mass index [BMI] 39.0-39.9, adult; Z95.5 Presence of coronary angioplasty implant and graft; Z79.899 Other long term (current) drug therapy; Z13.220 Encounter for screening for lipoid disorders; Z13.1 Encounter for screening for diabetes mellitus
CPT/HCPCS: 36415; 80053; 80061; 83036

== ENCOUNTER 2024-09-26 14:35 | Outpatient (CLI) | payer MEDICARE, OTHER, SELFPAY ==
--- NOTE | 2024-09-26 14:39 | XR_ITS ---
FINAL REPORT CLINICAL HISTORY: Knee Pain FINDINGS: AP, lateral and oblique views of the right knee were obtained. There is no prior exam for comparison. There is no acute osseous abnormality of the right knee. The joint space is preserved. The soft tissues are normal. There is no joint effusion. IMPRESSION: No acute osseous abnormality of the right knee. Reviewed, Interpreted and Dictated by Benita Simms MD Transcribed by Nehal Lopez Authenticated and [facility]
== END 2024-09-26 23:59 | disposition home or self-care (01) ==
LOC: RAD 14:36
PROVIDERS: PCP Internal Medicine; Visit Provider Internal Medicine
DX: M25.561 Pain in right knee (principal)
CPT/HCPCS: 73560